=== PATIENT | female | born 1955 | race Caucasian/White ===

== ENCOUNTER 2016-05-09 08:54 | Emergency (ER) | payer BC ==
[2016-05-09 09:22] VITALS: BP 134/69
--- NOTE | 2016-05-09 10:12 | UC ---
Eye Complaint HPI - HPI Summary HPI Summary: 60 YO FEMALE WITH ONSET LAST PM OF SNEEZING AWOKE WITH RIGHT EYE SWOLLEN AND RED SCANT D/C NO PAIN OR PHOTOPHOBIA TOOK MITZI EYE FEELS IRRITATED - History of Current Complaint Chief Complaint: UCEye Stated Complaint: RIGHT EYE COMPLAINT Time Seen by Provider: 05/09/16 09:59 Hx Obtained From: Patient Hx Last Menstrual Period: 5yrs Onset/Duration: Gradual Onset, Lasting Hours Timing: Constant Severity Initially: Mild Severity Currently: Mild Pain Intensity: 1 Pain Scale Used: 0-10 Numeric Location of Injury: Other - NO INJURY Aggravating Factor(s): Nothing Alleviating Factor(s): Nothing Associated Signs And Symptoms: Positive: Swelling - Allergies/Home Medications Allergies/Adverse Reactions: Allergies Allergy/AdvReac Type Severity Reaction Status Date / Time environmental Allergy Sneezing Uncoded 05/09/16 09:23 Home Medications: Home Medications Multivitamins/Minerals TAB* [Thera M Plus TAB*] 1 tab PO DAILY 05/09/16 [ History Confirmed 05/09/16] Omeprazole CAP* [Prilosec CAP* 20 MG] 20 mg PO DAILY 05/09/16 [History Confirmed 05/09/16] PMH/Surg Hx/FS Hx/Imm Hx Previously Healthy: Yes - Surgical History Surgical History: Yes Surgery Procedure, Year, and Place: , left ankle with plate, tonsils - Family History Known Family History: Positive: Hypertension - Social History Alcohol Use: Occasionally Substance Use Type: None Smoking Status (MU): Never Smoked Tobacco Review of Systems Constitutional: Negative Skin: Negative Eyes: Eye Redness ENT: Negative Respiratory: Negative Cardiovascular: Negative Gastrointestinal: Negative Genitourinary: Negative Motor: Negative Neurovascular: Negative Musculoskeletal: Negative Neurological: Negative Psychological: Negative All Other Systems Reviewed And Are Negative: Yes Physical Exam Triage Information Reviewed: Yes Appearance: Well-Appearing, No Pain Distress, Well-Nourished Vital Signs: Initial Vital Signs Temp 98.5 F 05/09/16 09:13 Pulse 79 05/09/16 09:13 Resp 18 05/09/16 09:13 BP 134/69 05/09/16 09:13 Vital Signs Reviewed: Yes Eyes: Positive: Conjunctiva Inflamed - r>>l, Discharge - SCANT D/C BOTH EYES, Other: - EOMI/PERRL/LID EDEMA RIGHT EYE ENT: Positive: Hearing grossly normal, TMs normal. Negative: Pharyngeal erythema, Nasal congestion, Nasal drainage, Trismus, Muffled/hoarse voice Neck: Positive: Supple, Nontender, No Lymphadenopathy Respiratory: Positive: Lungs clear, Normal breath sounds, No respiratory distress, No accessory muscle use Cardiovascular: Positive: RRR, No Murmur Musculoskeletal: Positive: ROM Intact, No Edema Neurological: Positive: Alert Psychological Exam: Normal Skin Exam: Normal Eye Complaint Course/Dx - Differential Dx/Diagnosis Provider Diagnoses: CONJUNCTIVITIS. SUSPECT ALLERGIC CONJUNCTIVITIS Discharge - Discharge Plan Condition: Stable Disposition: HOME Prescriptions: Polymyx/Trimethoprim OPTH* [Polytrim OPHTH*] 1 - 2 drop BOTH EYES QID #1 btl Patient Education Materials: Conjunctivitis (ED) Referrals: Jody Mahonye MD [Primary Care Provider] - Additional Instructions: I SUSPECT AN ALLERGIC CONJUNCTIVITIS COOL COMPRESSES ZADITOR EYE DROPS (OTC) CONTINUE MITZI RECHECK TOMORROW IF NOT IMPROVING
== END 2016-05-09 10:15 | disposition home or self-care (01) ==
LOC: UCCORT 08:54
DX: H10.31 Unspecified acute conjunctivitis, right eye (principal)
CPT/HCPCS: 99202; G0463

== ENCOUNTER 2018-08-19 21:45 | Emergency (ER) | payer BC ==
--- NOTE | 2018-08-19 21:49 | UC ---
Skin Complaint HPI - HPI Summary HPI Summary: 63 yo female presents with puncture wound to right leg by a stick less than an hour ago. Last tetanus was in 2016. The area bled a lot and pt washed it out with tap water. She bandaged the area and came to - History of Current Complaint Time Seen by Provider: 08/19/18 21:46 Stated Complaint: PUNCTURE WOUND FROM A STICK Hx Obtained From: Patient Hx Last Menstrual Period: 5yrs Onset/Duration: Sudden Onset Onset Severity: Mild Current Severity: Mild Pain Intensity: 3 Pain Scale Used: 0-10 Numeric - Allergy/Home Medications Allergies/Adverse Reactions: Allergies Allergy/AdvReac Type Severity Reaction Status Date / Time environmental Allergy Sneezing Uncoded 08/19/18 21:52 Home Medications: Home Medications Gabapentin CAP(*) [Neurontin 100 mg CAP(*)] 100 mg PO TID PRN 08/19/18 [History Confirmed 08/19/18] Ranitidine HCl (Nf) [Zantac] 75 mg PO PRN 08/19/18 [History] PMH/Surg Hx/FS Hx/Imm Hx GI/ History: Gastroesophageal Reflux - Surgical History Surgical History: Yes Surgery Procedure, Year, and Place: , left ankle with plate, tonsils - Family History Known Family History: Positive: Hypertension - Social History Occupation: Employed Full-time Lives: With Family Alcohol Use: Occasionally Substance Use Type: None Smoking Status (MU): Never Smoked Tobacco Review of Systems All Other Systems Reviewed And Are Negative: Yes Constitutional: Positive: Negative Skin: Positive: Other - Puncture wound Respiratory: Positive: Negative Cardiovascular: Positive: Negative Neurovascular: Positive: Negative Neurological: Positive: Negative Psychological: Positive: Negative Physical Exam - Summary Physical Exam Summary: GENERAL: NAD. WDWN. No pain distress. SKIN: RIGHT HERNANDEZ: 5mm puncture wound to anterior aspect. Scant active bleeding. Clean wound without FB. CHEST: No accessory muscle use. Breathing comfortably and in no distress. CV: Pulses intact. Cap refill <2seconds NEURO: Alert. PSYCH: Age appropriate behavior. Triage Information Reviewed: Yes Vital Signs: Vital Signs: Temp Pulse Resp BP Pulse Ox 97.7 F 75 16 112/82 97 08/19/18 21:49 08/19/18 21:49 08/19/18 21:49 08/19/18 21:49 08/19/18 21:49 Vital Signs Reviewed: Yes Course/Dx - Course Course Of Treatment: Wound was irrigated with 100mL NS and bandaged with gauze and coban. Will place pt on keflex for prophylactic infection given stick puncture wound. Advised to monitor the area for any signs of infection and f/u if develops - Diagnoses Provider Diagnosis: Puncture wound of right leg excluding thigh Discharge - Sign-Out/Discharge Documenting (check all that apply): Patient Departure All imaging exams completed and their final reports reviewed: No Studies - Discharge Plan Condition: Stable Disposition: HOME Patient Education Materials: Puncture Wound (DC) Referrals: Joyd Mahoney MD [Primary Care Provider] - Additional Instructions: If you develop a fever, shortness of breath, chest pain, new or worsening symptoms - please call your PCP or go to the ED immediately. Change the dressing daily until well healed (likely 4-5 days). If you develop a fever, redness, swelling, drainage, or increased pain - please be rechecked immediately - Billing Disposition and Condition Condition: STABLE Disposition: Home
[2018-08-19 21:52] VITALS: BP 112/82
[2018-08-19] MEDS ORDERED: Silver Nitrate/Potassium Nitr* 1 EA STICK TOPICAL ONE (22:10)
== END 2018-08-19 22:23 | disposition home or self-care (01) ==
LOC: UCEAST 21:45
DX: S81.811A Laceration without foreign body, right lower leg, initial encounter (principal); W26.8XXA Contact with other sharp object(s), not elsewhere classified, initial encounter; Y92.9 Unspecified place or not applicable
CPT/HCPCS: 99212; A9270-GY; G0463

== ENCOUNTER 2018-09-07 18:58 | Emergency (ER) | payer BC ==
--- OUTSIDE RECORDS SUMMARY | 2018-09-07 19:04 | XMS REPORT | Continuity of Care Document ---
:1955 External Reference #:[id number] Author Name Jody Farah MD Address [address] [place] [address] Care Team Providers Name Role Phone Jody Farah MD Care Team Information [employer] Firefighter Unavailable Payers Date Identification Numbers Payment Provider Subscriber Policy Number: [id number] [facility] Nohemy Quevedo Group Number: [id number] [address] PayID: [id number] [place] [address] Problems Active Problems Provider Date Peptic reflux disease Onset: 06/27/2006 Family History Date Family Member(s) Observation Comments Father Hypertension Father Hiatal Hernia With Barretts Mother Osteoporosis Mother Cancer, Rectal Social History Type Date Description Comments Sex Unknown Marital Status Lives With Boyfriend Smoke-Free Home is smoke-free Pets 1 dog Pets 2 cats Occupation Teacher Tobacco Use Start: Unknown Never Smoked Cigarettes ETOH Use Occasionally consumes beer Tobacco Use Start: Unknown Patient has never smoked Smoking Status Reviewed: 08/12/18 Patient has never smoked Allergies, Adverse Reactions, Alerts Description No Known Drug Allergies Medications Active Medications SIG Qnty Indications Ordering Date Provider Shingrix 2 shot series 2units [facility], 08/12/2018 50mcg/0.5ML Jody Romero MD Suspension Rec Gabapentin take 1 po bid prn 90caps N95.1 [facility], 06/30/2018 100mg and 1-3 capsules at Jody Romero MD Capsules bedtime Diclofenac Sodium apply 1 gram per 100gm M77.12 [facility], 05/12/2018 1% joint four times a Jody Romero MD Gel day as needed for pain Meloxicam take 1/2 to 1 30tabs M77.12 [facility], 03/02/2018 15mg tablet by mouth Jody Romero MD Tablets once daily as needed Calcium 600 1 by mouth every 90tabs M85.9 [facility], 11/15/2016 600mg day Jody Romero MD Tablets Vitamin D3 2 by mouth every M85.9 [facility], 11/15/2016 400Unit day Jody Romero MD Tablets Ranitidine HCL 1 by mouth twice a 180tabs K21.0 [facility], 05/17/2016 150mg day prn Jody Romero MD Tablets Fexofenadine HCL 1 po qd prn 90tabs 471.9 [facility], 09/29/2012 Jody Romero MD 180mg Tablets Sulfamethoxazole/Tri take one tablet by 30tabs N39.0 [facility], 06/05/2010 methoprim DS mouth as directed Jody Romero MD after intercourse 800-160mg Tablets for uti prevention Qnasl R09.82 Unknown 80mcg/Act Aerosol History Medications Nitrofurantoin Monohyd one tab twice a 14caps N39.0 [place], 12/26/2017 - Macro day x 7 days Hawa Torres RN 05/12/2018 100mg Capsules [employer] Shingrix 2 shot series 2units [facility], 11/11/2017 - 50mcg Suspension Rec Jody Romero MD 08/12/2018 Nitrofurantoin Monohyd 1 by mouth 10caps N39.0 [facility], 10/13/2017 - Macro twice a day Jody Romero MD 10/18/2017 100mg Capsules Alkalol as dir R09.82 [facility], 07/29/2017 - Solution Jody Romero MD 11/11/2017 [facility] - 4mg TBPK Jody Romero MD 07/29/2017 Alprazolam 1/2-2 one times 20tabs F43.0 [facility], 05/20/2017 - 0.25mg Tablets a day as needed Jody Romero MD 08/12/2018 Omeprazole 1 [facility] mouth [facility] - 20mg Capsules DR every day thru Jody Romero MD 05/20/2017 the holidays instead of zantac x 4 wks per GI Ciprofloxacin HCL 1 by mouth 10tabs N39.0 [facility], 01/27/2017 - 500mg Tablets twice a day for Jody Romero MD 02/01/2017 5days Doxycycline Hyclate 2 by mouth x 1 2tabs [facility] 12/27/2016 - 100mg Jody Romero MD 05/20/2017 Tablets Lidocaine apply 1 on 12 30units M62.830 [facility], 11/15/2016 - 5% Patches hours off 12 Jody Romero MD 09/15/2017 hours Z00.01 Ciprofloxacin HCL 1 tab by mouth twice 6tabs [facility], 04/11/2016 - a day x 3 days Jody Romero MD 05/17/2016 250mg Tablets Omeprazole 1 by mouth every day K21.0 [facility] 01/04/2016 - 20mg Jody Romero MD 05/17/2016 Capsules Fluticasone 2 sprays in each 16gm R09.82 [facility] 05/19/2015 - Propionate nostril daily Jody Romero MD 11/11/2017 50mcg/Act Suspension Omeprazole 1 by mouth bid 30caps K21.0 [facility] 04/18/2015 - 40mg Jody Romero MD 01/04/2016 Capsules Aspirin 1 by mouth every day R07.2 [facility], 12/02/2014 - 325mg Tablets Jody Romero MD 11/17/2015 Alprazolam 1/2-2 by mouth three 12tabs F43.0 [facility], 12/02/2014 - 0.25mg times a day as Jody Romero MD 04/11/2016 Tablets needed anxiety/insomnia Ciprofloxacin HCL 1 by mouth twice a 6tabs 595.0 [facility] 11/15/2014 - day Jody Romero MD 12/02/2014 250mg Tablets Caltrate 600+D 1 by mouth every day M85.9 [facility], 05/13/2014 - Jody Romero MD 11/15/2016 [id number] Tablets Cipro 1 by mouth twice a 6tabs 599.0 [facility] 12/02/2013 - 250mg Tablets day x 3 days Hawa Torres RN 03/25/2014 [employer] Premarin .5gm vaginally twice 1units 627.3 [facility] 12/02/2013 - 0.625mg/GM weekly for atrophic Hawa Torres RN 11/15/2014 Cream vaginitis sx [employer] Zostavax SC x 1 1units [facility], 08/31/2013 - Jody Romero MD 05/19/2015 04291Mya/0.65ML Solution Rec Macrobid 1 tab po bid x 7 14caps [facility], 07/19/2013 - 100mg days Hawa Torres RN 03/25/2014 Capsules [employer] Ciprofloxacin HCL 1 po bid till gone 6tabs [facility], 07/14/2013 - Hawa Torres RN 07/19/2013 250mg Tablets [employer] Ranitidine HCL 1 by mouth every day 90tabs K21.0 [facility], 06/25/2013 - 150mg Jody Romero MD 04/18/2015 Tablets Omeprazole 1 po qd 30caps 530.11 [facility], 09/29/2012 - 40mg Jody Romero MD 06/25/[address] Lee 471.9 [facility], 09/29/2012 - 137-50mcg/Act Jody Romero MD 05/19/2015 Suspension Famotidine 1 po qd 30tabs 787.20 [facility], 10/04/2011 - 40mg Jody Romero MD 06/01/2012 Tablets Fluticasone 2 sprays in each 16gm 784.91 [facility], 03/29/2011 - Propionate nostril daily Jody Romero MD 06/01/2012 50mcg/Act Suspension Ciprofloxacin HCL 1 po bid 6tabs 595.0 [facility], 06/05/2010 - Jody Romero MD 09/04/2010 250mg Tablets Nasonex 2 p bilat qd 1Bottle 381.81 [facility], 03/30/2010 - 50mcg/Act Jody Romero MD 03/29/2011 Suspension Ciprofloxacin HCL 1 po bid till gone 6tabs 599.0 [facility], 08/30/2009 - Hawa Torres RN 09/29/2009 250mg Tablets [employer] Sulfamethoxazole-Tri One as Directed 12units 599.0 [facility], 08/30/2009 - methoprim After [place] Jody Romero MD 06/05/2010 For UTI Prevention 800-160mg/20ML Suspension Carisoprodol take 1/2 to 1 tablet 20tabs 728.85 [facility], 07/04/2009 - 350mg three times a day if Jody Romero MD 10/28/2011 Tablets needed Lidoderm apply as directed [facility] 728.85 [facility] - 5% Patches 1-3 patches on x 12 Jody Romero MD 01/30/2010 hrs Cipro 1 po bid x 3 d 6tabs [facility], 06/20/2009 - 250mg Tablets Jody Romero MD 07/04/2009 Cipro 1 po bid x 3 days 6tabs 599.0 [place], 06/01/2008 - 250mg Tablets Hawa Torres RN 06/11/2008 [employer] Cipro 1 PO bid X 3D 6tabs [facility], 11/05/2006 - 250mg Tablets Jody Romero MD 11/21/2006 Diflucan One Tab PO Times One 1tabs [facility], 06/30/2006 - 150mg Day Jody Romero MD 12/15/2007 Tablets Kenalog In Orabase to aff area bid X 2 1Tube 528.2 [facility], 05/23/2006 - WKS Jody Romero MD 12/15/2007 0.1% Paste Endocarditis DX: Valvular [facility], 12/05/2005 - Prophylaxis Insufficiency Jody Romero MD 12/15/2007 Amoxicillin 4 po 1 hr before 4caps [facility], 12/03/2005 - 500mg procedure Jody Romero MD 12/15/2007 Capsules Protonix 1 PO qd 90tabs [facility], 08/30/2005 - 40mg Tablets Jody Romero MD 11/21/2006 Air Cast r ankle 845.09 [facility], 06/28/2005 - Jody Romero MD 08/02/2005 dx: sprain Soma 1/2-1 po tid prn 30tabs [facility], 04/01/2005 - 350mg Tablets Jody Romero MD 05/03/2005 Mobic 1-2 po qd 180tabs 726.5 [facility], 03/29/2005 - 7.5mg Tablets Jody Romero MD 05/03/2005 Physical Therapy eval and treat r hip 726.5 [facility], 03/29/2005 - and lbp Jdoy Romero MD 03/30/2005 Cipro 1 po bid x 7D 14tabs 595.0 [facility], 03/11/2005 - 250mg Tablets Jody Romero MD 05/03/2005 Cipro XR 1 po qd 3tabs 595.0 [facility], 01/18/2005 - 500mg Jody Romero MD 03/11/2005 Tablets Cipro XR 1 qd x 3 days 3tabs [facility], 04/26/2004 - 500mg Hawa Torres RN 03/11/2005 Tablets [employer] Medications Administered in Office Medication SIG Qnty Indications Ordering Provider Date Depo Medrol 40 MG Jody Farah MD 03/02/2018 Injection Depo Medrol 40 MG Jody Farah MD 12/11/2000 Injection Immunizations CPT Code Status Date Vaccine Lot # [id number] Given 12/23/2017 Influenza Vac, Quadrivalent, Split, 0.5mL Dosage, Im Use 64188 Given 12/11/2016 Influenza Vac, Quadrivalent, Split, 0.5mL Dosage, [id number] Im Use 90412 Given 02/13/2016 Influenza Vac, Quadrivalent, Split, 0.5mL Dosage, Im Use 16346 Given 06/13/2015 Tdap (Adacel) Ages 7 And Above Only [id number] 31054 Given 01/22/2015 Zoster (Zostavax) 39166 Given 12/23/2014 Influenza Vac, Quadrivalent, Split, 0.5mL Dosage, [id number] Im Use Q2038 Given 03/25/2014 Fluzone Trivalent Immunization [id number] Q2038 Given 02/23/2013 Fluzone Trivalent Immunization Q2038 Given 02/23/2013 Fluzone Trivalent Immunization [id number] Q2038 Given 01/17/2012 Fluzone Trivalent Immunization [id number] 99945 Given 01/30/2010 Afluria Or Fluvirin Flu Vac Intramuscular [id number] 76918 Given 03/31/2009 Influenza Virus Vaccine Pandemic Formulation - [id number] 87814 Given 03/31/2009 Afluria Or Fluvirin Flu Vac Intramuscular [id number] 03151 Given 03/31/2009 Administration Swine Flu Vaccine [id number] 36665 Given 01/21/2008 Afluria Or Fluvirin Flu Vac Intramuscular [id number] 80977 Given 07/10/2007 Tdap (Adacel) Ages 7 And Above Only [id number] 71593 Given 02/17/2007 Afluria Or Fluvirin Flu Vac Intramuscular 08755 Given 02/17/2007 Afluria Or Fluvirin Flu Vac Intramuscular [id number] 10684 Given 03/07/2006 Afluria Or Fluvirin Flu Vac Intramuscular [id number] 78644 Given 07/10/1999 Immunization Td 7 Yrs Or Older Vital Signs Date Vital Result Comment 08/12/2018 8:04am Weight 160.00 lb Heart Rate 76 /min BP Systolic 120 mmHg BP Diastolic 76 mmHg Height 69 inches 5'9" BMI (Body Mass Index) 23.6 kg/m2 06/30/2018 2:14pm Weight 161.00 lb Heart Rate 76 /min BP Systolic 110 mmHg BP Diastolic 64 mmHg Height 69 inches 5'9" BMI (Body Mass Index) 23.8 kg/m2 05/12/2018 8:41am Weight 161.00 lb Heart Rate 64 /min BP Systolic 110 mmHg BP Diastolic 74 mmHg Height 69 inches 5'9" BMI (Body Mass Index) 23.8 kg/m2 04/21/2018 3:45pm Weight 163.00 lb Heart Rate 68 /min BP Systolic 120 mmHg BP Diastolic 68 mmHg Height 69 inches 5'9" BMI (Body Mass Index) 24.1 kg/m2 03/02/2018 11:59am Weight 165.00 lb Heart Rate 80 /min BP Systolic 126 mmHg BP Diastolic 66 mmHg Height 69 inches 5'9" BMI (Body Mass Index) 24.4 kg/m2 12/26/2017 11:52am Body Temperature 98.1 F Weight 165.25 lb Heart Rate 60 /min BP Systolic 102 mmHg BP Diastolic 74 mmHg Height 69 inches 5'9" BMI (Body Mass Index) 24.4 kg/m2 11/11/2017 8:35am Weight 162.00 lb Heart Rate 76 /min BP Systolic 118 mmHg BP Diastolic 78 mmHg Height 69 inches 5'9" BMI (Body Mass Index) 23.9 kg/m2 10/13/2017 10:43am Body Temperature 98.0 F Weight 163.00 lb Heart Rate 71 /min BP Systolic Sitting 112 mmHg BP Diastolic Sitting 73 mmHg Height 69 inches 5'9" BMI (Body Mass Index) 24.1 kg/m2 09/15/2017 2:46pm Weight 167.00 lb Heart Rate 64 /min BP Systolic 120 mmHg BP Diastolic 76 mmHg Height 69 inches 5'9" BMI (Body Mass Index) 24.7 kg/m2 07/29/2017 2:45pm Body Temperature 99.1 F Weight 166.00 lb Heart Rate 76 /min BP Systolic 120 mmHg BP Diastolic 80 mmHg Height 69 inches 5'9" BMI (Body Mass Index) 24.5 kg/m2 05/20/2017 8:26am Weight 163.00 lb Heart Rate 72 /min BP Systolic 112 mmHg BP Diastolic 74 mmHg Height 69 inches 5'9" BMI (Body Mass Index) 24.1 kg/m2 01/27/2017 8:18am Heart Rate 75 /min BP Systolic 114 mmHg BP Diastolic 67 mmHg Height 69 inches 5'9" Urine Dipstick - Blood NEGATIVE Urine Dipstick - Protein NEGATIVE Urine Dipstick - Glucose NEGATIVE Urine Dipstick - Leukocytes 1+ 12/11/2016 8:05am Weight 162.00 lb Heart Rate 76 /min BP Systolic 120 mmHg BP Diastolic 68 mmHg Height 69 inches 5'9" BMI (Body Mass Index) 23.9 kg/m2 11/15/2016 8:02am Weight 160.00 lb Heart Rate 76 /min BP Systolic 112 mmHg BP Diastolic 72 mmHg Height 69 inches 5'9" BMI (Body Mass Index) 23.6 kg/m2 10/04/2016 11:28am Weight 161.00 lb Heart Rate 68 /min BP Systolic 128 mmHg BP Diastolic 68 mmHg Height 69 inches 5'9" BMI (Body Mass Index) 23.8 kg/m2 05/17/2016 9:00am Weight 164.00 lb Heart Rate 76 /min BP Systolic 120 mmHg BP Diastolic 76 mmHg Height 69 inches 5'9" BMI (Body Mass Index) 24.2 kg/m2 04/11/2016 8:51am Body Temperature 98.3 F Weight 166.00 lb Heart Rate 76 /min BP Systolic 118 mmHg BP Diastolic 68 mmHg Height 69 inches 5'9" BMI (Body Mass Index) 24.5 kg/m2 02/13/2016 8:31am Weight 164.00 lb Heart Rate 76 /min BP Systolic 128 mmHg BP Diastolic 68 mmHg 11/17/2015 8:30am Weight 162.00 lb Heart Rate 76 /min BP Systolic 130 mmHg BP Diastolic 76 mmHg Height 69 inches 5'9" BMI (Body Mass Index) 23.9 kg/m2 06/13/2015 2:08pm Weight 168.50 lb Heart Rate 73 /min BP Systolic 121 mmHg BP Diastolic 55 mmHg Height 69 inches 5'9" BMI (Body Mass Index) 24.9 kg/m2 05/19/2015 8:52am Weight 169.00 lb Heart Rate 80 /min BP Systolic 124 mmHg BP Diastolic 78 mmHg Height 69 inches 5'9" BMI (Body Mass Index) 25.0 kg/m2 12/23/2014 11:08am Weight 166.00 lb Heart Rate 68 /min BP Systolic 120 mmHg BP Diastolic 74 mmHg Height 69 inches 5'9" BMI (Body Mass Index) 24.5 kg/m2 12/02/2014 10:16am Weight 164.12 lb Heart Rate 68 /min BP Systolic 114 mmHg BP Diastolic 65 mmHg Height 69 inches 5'9" BMI (Body Mass Index) 24.2 kg/m2 11/15/2014 8:08am Weight 163.00 lb Heart Rate 80 /min BP Systolic 118 mmHg BP Diastolic 76 mmHg Height 69 inches 5'9" BMI (Body Mass Index) 24.1 kg/m2 05/13/2014 10:44am Weight 175.00 lb Heart Rate 76 /min BP Systolic 112 mmHg BP Diastolic 78 mmHg Height 69 inches 5'9" BMI (Body Mass Index) 25.8 kg/m2 03/25/2014 9:42am Weight 176.00 lb Heart Rate 76 /min BP Systolic 106 mmHg BP Diastolic 68 mmHg Height 69 inches 5'9" BMI (Body Mass Index) 26.0 kg/m2 12/02/2013 8:20am Weight 171.00 lb Heart Rate 70 /min BP Systolic 121 mmHg BP Diastolic 85 mmHg Height 69 inches 5'9" BMI (Body Mass Index) 25.2 kg/m2 09/29/2013 9:40am Weight 170.00 lb Heart Rate 72 /min BP Systolic 120 mmHg BP Diastolic 68 mmHg Height 69 inches 5'9" BMI (Body Mass Index) 25.1 kg/m2 08/31/2013 1:11pm Weight 171.00 lb Heart Rate 68 /min BP Systolic 120 mmHg BP Diastolic 72 mmHg Height 69 inches 5'9" BMI (Body Mass Index) 25.2 kg/m2 07/15/2013 3:22pm Weight 174.00 lb Heart Rate 64 /min BP Systolic 108 mmHg BP Diastolic 63 mmHg 07/14/2013 8:36am Body Temperature 98.0 F Weight 178.00 lb Heart Rate 76 /min BP Systolic 134 mmHg BP Diastolic 85 mmHg Urine Dipstick - Blood 1+ Urine Dipstick - Protein NEGATIVE Urine Dipstick - Glucose NEGATIVE 06/25/2013 8:28am Weight 170.00 lb Heart Rate 76 /min BP Systolic 112 mmHg BP Diastolic 76 mmHg Height 69 inches 5'9" BMI (Body Mass Index) 25.1 kg/m2 02/23/2013 2:59pm Weight 175.00 lb Heart Rate 72 /min BP Systolic 120 mmHg BP Diastolic 76 mmHg Height 69 inches 5'9" BMI (Body Mass Index) 25.8 kg/m2 09/29/2012 2:26pm Weight 173.00 lb Heart Rate 76 /min BP Systolic 110 mmHg BP Diastolic 66 mmHg Height 69 inches 5'9" BMI (Body Mass Index) 25.5 kg/m2 06/01/2012 11:03am Weight 170.00 lb Heart Rate 64 /min BP Systolic 120 mmHg BP Diastolic 70 mmHg Height 69 inches 5'9" BMI (Body Mass Index) 25.1 kg/m2 10/28/2011 10:09am Weight 171.00 lb Heart Rate 76 /min BP Systolic 126 mmHg BP Diastolic 72 mmHg Height 69 inches 5'9" BMI (Body Mass Index) 25.2 kg/m2 10/04/2011 12:09pm Weight 170.00 lb Heart Rate 76 /min BP Systolic 124 mmHg BP Diastolic 78 mmHg Height 69 inches 5'9" BMI (Body Mass Index) 25.1 kg/m2 08/23/2011 10:46am Weight 172.00 lb Heart Rate 76 /min BP Systolic 106 mmHg BP Diastolic 66 mmHg Height 69 inches 5'9" BMI (Body Mass Index) 25.4 kg/m2 03/29/2011 4:22pm Body Temperature 98.9 F Weight 169.00 lb Heart Rate 60 /min BP Systolic 112 mmHg BP Diastolic 72 mmHg Height 69 inches 5'9" BMI (Body Mass Index) 25.0 kg/m2 10/30/2010 2:59pm Weight 164.00 lb Heart Rate 77 /min BP Systolic 108 mmHg BP Diastolic 69 mmHg 09/04/2010 8:53am Body Temperature 979.0 F Weight 161.00 lb Heart Rate 72 /min BP Systolic 114 mmHg BP Diastolic 66 mmHg Height 69 inches 5'9" BMI (Body Mass Index) 23.8 kg/m2 06/05/2010 4:05pm Body Temperature 98.5 F Heart Rate 64 /min BP Systolic 120 mmHg BP Diastolic 70 mmHg 03/30/2010 1:05pm Body Temperature 98.7 F Weight 167.00 lb Heart Rate 68 /min BP Systolic 108 mmHg BP Diastolic 72 mmHg 01/30/2010 2:17pm Weight 166.00 lb Heart Rate 72 /min BP Systolic 108 mmHg BP Diastolic 70 mmHg 11/24/2009 10:31am Weight 162.00 lb Heart Rate 64 /min BP Systolic 110 mmHg BP Diastolic 70 mmHg Height 69 inches 5'9" BMI (Body Mass Index) 23.9 kg/m2 Urine Dipstick - Blood NEGATIVE Urine Dipstick - Protein NEGATIVE Urine Dipstick - Glucose NEGATIVE 09/29/2009 8:35am Weight 164.00 lb Heart Rate 68 /min BP Systolic 110 mmHg BP Diastolic 62 mmHg Urine Dipstick - Blood 2+ Urine Dipstick - Protein NEGATIVE Urine Dipstick - Glucose NEGATIVE 08/30/2009 10:35am Weight 165.00 lb Heart Rate 80 /min BP Systolic 112 mmHg BP Diastolic 70 mmHg Urine Dipstick - Blood 1+ And WBC 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 [employer] Urine Dipstick - Protein TRACE Urine Dipstick - Glucose NEGATIVE 07/04/2009 10:28am Weight 166.00 lb Heart Rate 76 /min BP Systolic 100 mmHg BP Diastolic 70 mmHg 06/20/2009 10:38am Body Temperature 96.9 F Heart Rate 76 /min BP Systolic 112 mmHg BP Diastolic 64 mmHg Urine Dipstick - Blood 1+ Urine Dipstick - Protein 1+ Urine Dipstick - Glucose 1+ 03/31/2009 10:38am Weight 163.00 lb Heart Rate 76 /min BP Systolic 102 mmHg BP Diastolic 68 mmHg 09/05/2008 2:43pm Weight 164.00 lb Heart Rate 68 /min BP Systolic 110 mmHg BP Diastolic 76 mmHg Height 68.75 inches 5'8.75" BMI (Body Mass Index) 24.4 kg/m2 Urine Dipstick - Blood NEGATIVE Urine Dipstick - Protein NEGATIVE Urine Dipstick - Glucose NEGATIVE 06/01/2008 8:16am Weight 164.00 lb Heart Rate 84 /min BP Systolic 119 mmHg BP Diastolic 70 mmHg Urine Dipstick - Blood 1+ WBC Urine Dipstick - Protein TRACE Urine Dipstick - Glucose 1+ 01/21/2008 8:22am Weight 164.00 lb Heart Rate 80 /min BP Systolic 112 mmHg BP Diastolic 70 mmHg Height 69 inches 5'9" BMI (Body Mass Index) 24.2 kg/m2 12/18/2007 10:22am Weight 165.00 lb Heart Rate 65 /min BP Systolic 108 mmHg BP Diastolic 68 mmHg Height 69 inches 5'9" BMI (Body Mass Index) 24.4 kg/m2 12/15/2007 1:55pm Weight 163.00 lb Heart Rate 84 /min BP Systolic 116 mmHg BP Diastolic 55 mmHg Height 69 inches 5'9" BMI (Body Mass Index) 24.1 kg/m2 08/14/2007 11:01am Weight 160.00 lb Heart Rate 64 /min BP Systolic 122 mmHg BP Diastolic 72 mmHg Height 69 inches 5'9" BMI (Body Mass Index) 23.6 kg/m2 Urine Dipstick - Blood TRACE Urine Dipstick - Protein NEGATIVE Urine Dipstick - Glucose NEGATIVE 07/10/2007 10:11am Weight 161.00 lb Heart Rate 687 /min BP Systolic 118 mmHg BP Diastolic 66 mmHg Height 69 inches 5'9" BMI (Body Mass Index) 23.8 kg/m2 11/21/2006 10:36am Weight 161.00 lb Heart Rate 76 /min BP Systolic 112 mmHg BP Diastolic 78 mmHg Height 69 inches 5'9" BMI (Body Mass Index) 23.8 kg/m2 06/27/2006 8:42am Weight 161.00 lb Heart Rate 76 /min BP Systolic 108 mmHg BP Diastolic 66 mmHg Height 69 inches 5'9" BMI (Body Mass Index) 23.8 kg/m2 Urine Dipstick - Blood NEGATIVE Urine Dipstick - Protein NEGATIVE Urine Dipstick - Glucose NEGATIVE 05/23/2006 1:39pm Body Temperature 97.1 F Weight 161.00 lb Heart Rate 76 /min BP Systolic 108 mmHg BP Diastolic 66 mmHg 03/07/2006 1:42pm Weight 163.00 lb Heart Rate 80 /min BP Systolic 116 mmHg BP Diastolic 76 mmHg 08/02/2005 4:26pm Weight 158.00 lb Heart Rate 60 /min BP Systolic 120 mmHg BP Diastolic 74 mmHg 06/28/2005 3:56pm Weight 162.00 lb Heart Rate 76 /min BP Systolic 104 mmHg BP Diastolic 70 mmHg 05/03/2005 2:50pm Weight 159.00 lb Heart Rate 58 /min BP Systolic 108 mmHg BP Diastolic 66 mmHg 03/29/2005 1:32pm Body Temperature 97.7 F Weight 163.00 lb Heart Rate 74 /min BP Systolic 128 mmHg BP Diastolic 85 mmHg Urine Dipstick - Blood NEGATIVE Urine Dipstick - Protein NEGATIVE Urine Dipstick - Glucose NEGATIVE 03/11/2005 2:20pm Body Temperature 97.9 F Weight 159.00 lb Heart Rate 77 /min BP Systolic 125 mmHg BP Diastolic 61 mmHg Urine Dipstick - Blood 1+ Leukocytes Urine Dipstick - Protein TRACE Urine Dipstick - Glucose NEGATIVE 01/18/2005 8:18am Weight 157.00 lb Heart Rate 83 /min BP Systolic 100 mmHg BP Diastolic 52 mmHg Urine Dipstick - Blood 1+ Urine Dipstick - Protein 1+ Urine Dipstick - Glucose NEGATIVE 09/03/2004 1:53pm Weight 159.00 lb Heart Rate 72 /min BP Systolic 111 mmHg BP Diastolic 62 mmHg Urine Dipstick - Blood 3+ Urine Dipstick - Protein NEGATIVE Urine Dipstick - Glucose NEGATIVE Results Test Date Facility Test Result H/L Range Note Sanjana Screen With 06/30/2018 [facility] Sanjana Screen NEGATIVE Negative 1 Reflex-[facility] dsDNA IgG 1.10 IU/mL 0.00-9.00 2 Laboratory test finding 06/30/2018 [facility] CCP Antibody Igg Negative Negative CRP (C-Reactive) 0.03 mg/dL 0.00-0.75 Esr 2 mm/hr 0-20 Rheumatoid Factor-[facility] <10.0 IU/mL 0.0-10.0 Lyme Igm/Igg AB -RL 06/30/2018 [facility] Lyme Igm/Igg AB @ NEGATIVE (Neg) 3, 4 CBC with Auto 05/12/2018 [facility] WBC 4.6 K/uL 4.1-11.0 Diff-fcmg RBC 4.45 M/uL 4.00-5.40 Hemoglobin 14.8 gm/dL 12.0-16.0 Hematocrit 43.0 % 36.0-47.0 MCV 96.5 fL 80.0-97.0 MCH 33.2 pg High 27.0-32.0 MCHC 34.4 g/dL 32.0-36.0 RDW 12.7 % 11.5-14.5 PLT Count 157 K/ul 140-400 MPV 8.3 FL 7.1-10.7 Neutrophil 66.5 % 35.0-75.0 Lymphocyte 22.2 % 16.0-52.0 Monocyte 7.0 % 2.0-10.0 Eosinophil 3.1 % 0.0-5.0 Basophil 1.2 % 0.0-4.0 Abs Neutrophils 3.1 K/uL 2.1-8.0 Abs Lymphocytes 1.0 K/uL 0.8-5.5 Abs Monocytes 0.3 K/uL 0.1-1.0 Abs Eosinophils 0.1 K/uL 0.0-0.5 Abs Basophils 0.1 K/uL 0.0-0.3 Laboratory test finding 05/12/2018 [facility] Vitamin B12 621 pg/mL 180- 914 Iron Panel 05/12/2018 [facility] Iron, Total 147 g/dL 50-170 Transferrin 302.0 mg/dL 203.0-362.0 Tibc (calc) 423 g/dL 261-478 % Iron Saturation 34.8 % 13.0-45.0 Laboratory test finding 05/12/2018 [facility] Ferritin 12.1 ng/ml 11.0- 306.8 Lipid Treatment 05/12/2018 [facility] Cholesterol 232 mg/dL High 50-199 Triglycerides 95 mg/dL 30-200 HDL 91 mg/dL High 35-85 5 Chol/ HDL Ratio 2.5 ratio Low 3.7-5.6 VLDL 19 mg/dL 2-29 LDL (Calc) 122 mg/dL High 20-99 6 Alt 13 U/L 3-42 Ast 17 U/L 8-42 Laboratory test finding 05/12/2018 [facility] Vitamin D 25 Hydroxy 35 ng/mL 30-100 7 Basic (BMP) 05/12/2018 [facility] Sodium 143 mmol/L 135-146 8 Potassium 4.0 mmol/L 3.5-5.2 Chloride# 103 mmol/L 97-110 9 Carbon Dioxide 31 mmol/L 24-34 Glucose 84 mg/dL 70-105 BUN 13 mg/dL 6-26 Creatinine 0.7 mg/dL 0.5-1.4 Calcium 10.0 mg/dL 8.5-10.2 Non Marizol Egfr >60 >60 10 Marizol Egfr >60 >60 11 Anion Gap 9 mmol/L 5-15 12 Laboratory 05/12/2018 [facility] TSH 2.58 uIU/mL 0.35-4.94 test finding Laboratory 05/12/2018 [facility] Pap SEE NOTE 13 test finding Laboratory 12/26/2017 [facility] Urine Microbiology res Abnormal 14, test finding Culture <SEE NOTE> 15 CBC With Auto 11/11/2017 [facility] WBC 3.8 K/uL Low 4.1-11.0 Diff RBC 4.25 M/uL 4.00-5.40 Hemoglobin 13.7 gm/dL 12.0-16.0 Hematocrit 40.8 % 36.0-47.0 MCV 96.1 fL 80.0-97.0 MCH 32.3 pg High 27.0-32.0 MCHC 33.7 g/dL 32.0-36.0 RDW 13.1 % 11.5-14.5 PLT Count 156 K/ul 140-400 MPV 8.2 FL 7.1-10.7 Neutrophil 65.7 % 35.0-75.0 Lymphocyte 23.1 % 16.0-52.0 Monocyte 6.7 % 2.0-10.0 Eosinophil 3.5 % 0.0-5.0 Basophil 1.0 % 0.0-4.0 Abs Neutrophils 2.5 K/uL 2.1-8.0 Abs Lymphocytes 0.9 K/uL 0.8-5.5 Abs Monocytes 0.2 K/uL 0.1-1.0 Abs Eosinophils 0.1 K/uL 0.0-0.5 Abs Basophils 0.0 K/uL 0.0-0.3 Comprehensive Met Panel-[facility] 11/11/2017 [facility] Sodium 145 mmol/L 135- 146 16 Potassium 4.0 mmol/L 3.5-5.2 Chloride# 105 mmol/L 97-110 17 Carbon Dioxide 31 mmol/L 24-34 Glucose 86 mg/dL 70-105 BUN 14 mg/dL 6-26 Creatinine 0.9 mg/dL 0.5-1.4 Calcium 9.7 mg/dL 8.5-10.2 Total Protein 6.6 g/dL 6.0-8.0 Albumin 4.5 g/dL 3.6-4.9 Globulin 2.1 g/dL 2.0-3.5 A/G Ratio 2.1 Ratio 1.0-2.2 Total Bilirubin 1.1 mg/dL 0.1-1.3 Alkaline Phosphatase 49 U/L 24-140 Alt 14 U/L 3-42 Ast 18 U/L 8-42 Marizol Egfr >60 >60 18 Non Marizol Egfr >60 >60 19 Anion Gap 9 mmol/L 5-15 20 Laboratory test finding 11/11/2017 [facility] Ferritin 7.8 ng/ml Low 11.0- 306.8 Lipid 11/11/2017 [facility] Cholesterol 221 mg/dL High 50-199 Triglycerides 73 mg/dL 30-200 HDL 88 mg/dL High 35-85 21 Chol/ HDL Ratio 2.5 ratio Low 3.7-5.6 VLDL 15 mg/dL 2-29 LDL (Calc) 118 mg/dL High 20-99 22 Laboratory test finding 11/11/2017 [facility] Vitamin D 25 Hydroxy 34 ng/mL 30-100 23 TSH 1.92 uIU/mL 0.35-4.94 Free T4 1.03 ng/dL 0.70-1.48 Laboratory test 11/11/2017 [facility] T3 Total 0.8 ng/mL (0.6-1.8) 24 finding Laboratory test 10/13/2017 [facility] Urine Microbiology Abnormal 25, finding Culture res <SEE NOTE> 26 Laboratory test 01/27/2017 [facility] Urine Microbiology Abnormal 27, finding Culture res <SEE NOTE> 28 Laboratory test 11/15/2016 [facility] Vit D25oh 35 ng/mL 31-100 finding Comprehensive Met 11/15/2016 [facility] Sodium 142 mmol/L 135-146 29 [facility] Potassium 4.1 mmol/L 3.5-5.2 Chloride# 104 mmol/L 97-110 30 Carbon Dioxide 29 mmol/L 24-34 Glucose 81 mg/dL 70-105 BUN 15 mg/dL 6-26 Creatinine 0.8 mg/dL 0.5-1.4 Calcium 9.6 mg/dL 8.5-10.2 Total Protein 6.2 g/dL 6.0-8.0 Albumin 4.5 g/dL 3.6-4.9 Globulin 1.7 g/dL Low 2.0-3.5 A/G Ratio 2.6 Ratio High 1.0-2.2 Total Bilirubin 1.2 mg/dL 0.1-1.3 Alkaline Phosphatase 52 U/L 24-140 Alt 19 U/L 3-42 Ast 21 U/L 8-42 Marizol Egfr >60 >60 31 Non Marizol Egfr >60 >60 32 Anion Gap 9 mmol/L 7-16 33 Laboratory test finding 11/15/2016 [facility] TSH 2.26 uIU/mL 0.35-4.94 Free T4 0.90 ng/dL 0.70-1.48 T3 Total 0.8 ng/mL (0.7-1.9) 34 Lipid 11/15/2016 [facility] Cholesterol 207 mg/dL High 50-199 Triglycerides 69 mg/dL 30-200 HDL 89 mg/dL High 35-85 35 Chol/ HDL Ratio 2.3 ratio Low 3.7-5.6 VLDL 14 mg/dL 2-29 LDL (Calc) 104 mg/dL High 20-99 36 Laboratory test 04/11/2016 [facility] Urine Culture Microbiology res Abnormal 37 finding <SEE NOTE> CBC With Auto 02/13/2016 [facility] WBC 4.6 K/uL 4.1-11 Diff .0 RBC 4.62 M/uL 4.00-5.40 Hemoglobin 14.4 gm/dL 12.0-16.0 Hematocrit 43.0 % 36.0-47.0 MCV 93.0 fL 80.0-97.0 MCH 31.2 pg 27.0-32.0 MCHC 33.6 g/dL 32.0-36.0 RDW 14.5 % 11.5-14.5 PLT Count 163 K/ul 140-400 Neutrophil 65.1 % 35.0-75.0 Lymphocyte 23.3 % 16.0-52.0 Monocyte 6.7 % 2.0-10.0 Eosinophil 3.8 % 0.0-5.0 Basophil 1.1 % 0.0-4.0 Abs Neutrophils 3.0 K/uL 2.1-8.0 Abs Lymphocytes 1.1 K/uL 0.8-5.5 Abs Monocytes 0.3 K/uL 0.1-1.0 Abs Eosinophils 0.2 K/uL 0.0-0.5 Abs Basophils 0.1 K/uL 0.0-0.3 Laboratory test finding 02/13/2016 [facility] Ferritin 10.8 ng/ml Low 11.0- 306.0 Iron Panel 02/13/2016 [facility] Iron, Total 125 g/dL 50-170 Transferrin 302.1 mg/dL 203.0-362.0 Tibc (calc) 423 g/dL 261-478 % Iron Saturation 29.6 % 13.0-45.0 Laboratory test finding 02/13/2016 [facility] Amylase 73 U/L 29-103 Lipase 88 Consistent wi <SEE NOTE> U/L High 38 CBC With Auto Diff 11/17/2015 [facility] WBC 4.0 K/uL Low 4.1-11.0 RBC 4.41 M/uL 4.00-5.40 Hemoglobin 13.5 gm/dL 12.0-16.0 Hematocrit 40.4 % 36.0-47.0 MCV 91.5 fL 80.0-97.0 MCH 30.5 pg 27.0-32.0 MCHC 33.3 g/dL 32.0-36.0 RDW 13.8 % 11.5-14.5 PLT Count 163 K/ul 140-400 Neutrophil 70.8 % 35.0-75.0 Lymphocyte 19.3 % 16.0-52.0 Monocyte 6.4 % 2.0-10.0 Eosinophil 2.5 % 0.0-5.0 Basophil 1.0 % 0.0-4.0 Abs Neutrophils 2.8 K/uL 2.1-8.0 Abs Lymphocytes 0.8 K/uL 0.8-5.5 Abs Monocytes 0.3 K/uL 0.1-1.0 Abs Eosinophils 0.1 K/uL 0.0-0.5 Abs Basophils 0.0 K/uL 0.0-0.3 Laboratory test finding 11/17/2015 [facility] Ferritin 7.4 ng/ml Low 11.0- 306.0 Iron Panel 11/17/2015 [facility] Iron, Total 66 g/dL 50-170 Transferrin 329.4 mg/dL 203.0-362.0 Tibc (calc) 461 g/dL 261-478 % Iron Saturation 14.3 % 13.0-45.0 Laboratory test finding 11/17/2015 [facility] Folate >24.8 ng/ml 5.9-24.8 TSH 1.90 uIU/mL 0.35-4.94 Vitamin B12 620 pg/mL 180-914 Amylase 76 U/L 29-103 Lipase 88 U/L High 11-82 Lipid 11/17/2015 [facility] Cholesterol 216 mg/dL High 50-199 Triglycerides 75 mg/dL 30-200 HDL 86 mg/dL High 35-85 39 Chol/ HDL Ratio 2.5 ratio Low 3.7-5.6 VLDL 15 mg/dL 2-29 LDL (Calc) 115 mg/dL High 20-99 40 Comprehensive Metabolic (CMP) 11/17/2015 [facility] Sodium 140 mmol/L 134- 142 Potassium 4.1 mmol/L 3.5-5.2 Chloride 103 mmol/L 97-109 Carbon Dioxide 32 mmol/L 24-34 Glucose 89 mg/dL 70-105 BUN 12 mg/dL 6-26 Creatinine 0.8 mg/dL 0.5-1.4 Calcium 9.7 mg/dL 8.5-10.2 Total Protein 6.9 g/dL 6.0-8.0 Albumin 4.5 g/dL 3.6-4.9 Globulin 2.4 g/dL 2.0-3.5 A/G Ratio 1.9 Ratio 1.0-2.2 Total Bilirubin 1.0 mg/dL 0.1-1.3 Alkaline Phosphatase 53 U/L 24-140 Alt 17 U/L 3-42 Ast 20 U/L 8-42 Anion Gap 9 mmol/L 6-14 Marizol Egfr >60 >60 41 Non Marizol Egfr >60 >60 42 Serum Prot Elect -RL 11/17/2015 [facility] Total Protein 7.2 g/dL (6.4-8.2 ) Total Protein Epp 7.2 g/dL (6.4-8.2) Albumin Calc 4.9 g/dL (3.9-5.1) Alpha 1 Calc 0.2 g/dL (0.1-0.3) Alpha 2 Calc 0.8 g/dL (0.4-1.0) Beta Calc 0.7 g/dL (0.5-1.1) Gamma Calc 0.7 g/dL (0.4-1.2) Monoclonal Calc NO MONOCLONAL ID <SEE NOTE> g/dL ([place]) 43 Albumin Percent 68.1 % (58.8-69.6) Alpha 1 Percent 2.3 % (1.6-3.0) Alpha 2 Percent 10.6 % (7.2-13.2) Beta Percent 10.0 % (8.0-14.7) Gamma Percent 9.0 % (7.3-16.4) Interpretation: NORMAL PATTERN 44 Laboratory test 05/19/2015 [facility] Hepatitis C Virus NONREACTIVE Nonreactive finding Antibody Lipid 05/19/2015 [facility] Cholesterol 197 mg/dL 50-199 Triglycerides 95 mg/dL 30-200 HDL 77 mg/dL 35-85 45 Chol/ HDL Ratio 2.6 ratio Low 3.7-5.6 VLDL 19 mg/dL 2-29 LDL (Calc) 101 mg/dL High 20-99 46 Comprehensive Metabolic (CMP) 05/19/2015 [facility] Sodium 140 mmol/L 134- 142 Potassium 4.4 mmol/L 3.5-5.2 Chloride 104 mmol/L 97-109 Carbon Dioxide 32 mmol/L 24-34 Glucose 88 mg/dL 70-105 BUN 17 mg/dL 6-26 Creatinine 0.8 mg/dL 0.5-1.4 Calcium 9.5 mg/dL 8.5-10.2 Total Protein 6.7 g/dL 6.0-8.0 Albumin 4.6 g/dL 3.6-4.9 Globulin 2.1 g/dL 2.0-3.5 A/G Ratio 2.2 Ratio 1.0-2.2 Total Bilirubin 1.0 mg/dL 0.1-1.3 Alkaline Phosphatase 58 U/L 24-140 Alt 17 U/L 3-42 Ast 22 U/L 8-42 Anion Gap 8 mmol/L 6-14 Marizol Egfr >60 >60 47 Non Marizol Egfr >60 >60 48 Laboratory test finding 05/19/2015 [facility] Pap SEE NOTE 49 Laboratory test finding 05/19/2015 [facility] TSH 1.88 uIU/mL 0.35-4.94 Vit D,25 Hydroxy 41 ng/mL 31-100 CBC With Auto Diff 05/19/2015 [facility] WBC 5.0 K/uL 4.1-11.0 RBC 4.40 M/uL 4.00-5.40 Hemoglobin 14.2 gm/dL 12.0-16.0 Hematocrit 42.5 % 36.0-47.0 MCV 96.5 fL 80.0-97.0 MCH 32.3 pg High 27.0-32.0 MCHC 33.4 g/dL 32.0-36.0 RDW 12.3 % 11.5-14.5 PLT Count 163 K/ul 140-400 Neutrophil 73.4 % 35.0-75.0 Lymphocyte 16.1 % 16.0-52.0 Monocyte 6.4 % 2.0-10.0 Eosinophil 3.3 % 0.0-5.0 Basophil 0.8 % 0.0-4.0 Abs Neutrophils 3.7 K/uL 2.1-8.0 Abs Lymphocytes 0.8 K/uL 0.8-5.5 Abmon 0.3 K/uL 0.1-1.0 Abs Eosinophils 0.2 K/uL 0.0-0.5 Abs Basophils 0.0 K/uL 0.0-0.3 Basic (BMP) 12/23/2014 [facility] Sodium 141 mmol/L 134-142 Potassium 4.7 mmol/L 3.5-5.2 Chloride 105 mmol/L 97-109 Carbon Dioxide 30 mmol/L 24-34 Glucose 83 mg/dL 70-105 BUN 18 mg/dL 6-26 Creatinine 0.9 mg/dL 0.5-1.4 Calcium 9.4 mg/dL 8.5-10.2 Anion Gap 11 mmol/L 6-14 Non Marizol Egfr >60 >60 50 Marizol Egfr >60 >60 51 Laboratory test 11/15/2014 [facility] Urine Culture Microbiology res 52 finding <SEE NOTE> Laboratory test 05/13/2014 [facility] Vit D,25 38 ng/mL 31-100 finding Hydroxy CBC With Auto Diff 05/13/2014 [facility] WBC 4.8 K/uL 4.1-11.0 RBC 4.41 M/uL 4.00-5.40 Hemoglobin 14.6 gm/dL 12.0-16.0 Hematocrit 43.0 % 36.0-47.0 MCV 97.5 fL High 80.0-97.0 MCH 33.1 pg High 27.0-32.0 MCHC 34.0 g/dL 32.0-36.0 RDW 12.6 % 11.5-14.5 PLT Count 166 K/ul 140-400 Neutrophil 66.6 % 35.0-75.0 Lymphocyte 22.4 % 16.0-52.0 Monocyte 6.6 % 2.0-10.0 Eosinophil 3.3 % 0.0-5.0 Basophil 1.1 % 0.0-4.0 Abs Neutrophils 3.2 K/uL 2.1-8.0 Abs Lymphocytes 1.1 K/uL 0.8-5.5 Abmon 0.3 K/uL 0.1-1.0 Abs Eosinophils 0.2 K/uL 0.0-0.5 Abs Basophils 0.1 K/uL 0.0-0.3 CBC With Auto Diff 04/28/2014 [facility] WBC 4.0 K/uL Low 4.1-11.0 53 RBC 4.40 M/uL 4.00-5.40 Hemoglobin 14.8 gm/dL 12.0-16.0 Hematocrit 42.8 % 36.0-47.0 MCV 97.2 fL High 80.0-97.0 MCH 33.5 pg High 27.0-32.0 MCHC 34.5 g/dL 32.0-36.0 RDW 13.0 % 11.5-14.5 PLT Count 169 K/ul 140-400 Neutrophil 67.1 % 35.0-75.0 Lymphocyte 21.6 % 16.0-52.0 Monocyte 6.4 % 2.0-10.0 Eosinophil 3.8 % 0.0-5.0 Basophil 1.1 % 0.0-4.0 Abs Neutrophils 2.7 K/uL 2.1-8.0 Abs Lymphocytes 0.9 K/uL 0.8-5.5 Abmon 0.3 K/uL 0.1-1.0 Abs Eosinophils 0.2 K/uL 0.0-0.5 Abs Basophils 0.0 K/uL 0.0-0.3 Comprehensive Metabolic (CMP) 04/28/2014 [facility] Sodium 139 mmol/L 134- 142 Potassium 4.7 mmol/L 3.5-5.2 Chloride 104 mmol/L 97-109 Carbon Dioxide 30 mmol/L 24-34 Glucose 78 mg/dL 70-105 BUN 16 mg/dL 6-26 Creatinine 0.8 mg/dL 0.5-1.4 Calcium 10.0 mg/dL 8.5-10.2 Total Protein 7.1 g/dL 6.0-8.0 Albumin 4.9 g/dL 3.6-4.9 Globulin 2.2 g/dL 2.0-3.5 A/G Ratio 2.2 Ratio 1.0-2.2 Total Bilirubin 1.2 mg/dL 0.1-1.3 Alkaline Phosphatase 48 U/L 24-140 Alt 12 U/L 3-42 Ast 17 U/L 8-42 Anion Gap 10 mmol/L 6-14 Marizol Egfr >60 >60 54 Non Marizol Egfr >60 >60 55 Lipid 04/28/2014 [facility] Cholesterol 218 mg/dL High 50-199 Triglycerides 81 mg/dL 30-200 HDL 88 mg/dL High 35-85 56 Chol/ HDL Ratio 2.5 ratio Low 3.7-5.6 VLDL 16 mg/dL 2-29 LDL (Calc) 114 mg/dL High 20-99 57 Laboratory test finding 04/28/2014 [facility] TSH 2.43 uIU/mL 0.34-5.60 Free T4 0.91 ng/dL 0.50-1.60 Laboratory test 03/25/2014 [facility] Pap SEE NOTE 58 finding Laboratory test 12/02/2013 [facility] Urine Culture Microbiology res 59, 60 finding <SEE NOTE> Laboratory test 07/14/2013 [facility] Urine Culture Microbiology res Abnormal 61, 62 finding <SEE NOTE> Laboratory test 03/09/2013 [facility] Vitamin B12 582 pg/mL 180-9 63 finding 14 Magnesium 2.0 mg/dL 1.5-2.7 CBC With Auto Diff 03/09/2013 [facility] WBC 4.2 K/uL 4.1-11.0 RBC 4.28 M/uL 4.00-5.40 Hemoglobin 14.3 gm/dL 12.0-16.0 Hematocrit 40.4 % 36.0-47.0 MCV 94.3 fL 80.0-97.0 MCH 33.4 pg High 27.0-32.0 MCHC 35.4 g/dL 32.0-36.0 RDW 12.5 % 11.5-14.5 PLT Count 161 K/ul 140-400 Neutrophil 57.2 % 35.0-75.0 Lymphocyte 31.0 % 16.0-52.0 Monocyte 5.7 % 2.0-10.0 Eosinophil 5.5 % High 0.0-5.0 Basophil 0.6 % 0.0-4.0 Abs Neutrophils 2.4 K/uL 2.1-8.0 Abs Lymphocytes 1.3 K/uL 0.8-5.5 Abmon 0.2 K/uL 0.1-1.0 Abs Eosinophils 0.2 K/uL 0.0-0.5 Abs Basophils 0.0 K/uL 0.0-0.3 Lipid 03/09/2013 [facility] Cholesterol 218 mg/dL High 50-199 Triglycerides 72 mg/dL 30-200 HDL 81 mg/dL 35-85 64 Chol/ HDL Ratio 2.7 ratio Low 3.7-5.6 VLDL 14 mg/dL 2-29 LDL (Calc) 123 mg/dL High 20-99 65 Comprehensive Metabolic (CMP) 03/09/2013 [facility] Sodium 140 mmol/L 134- 142 Potassium 4.6 mmol/L 3.5-5.2 Chloride 105 mmol/L 97-109 Carbon Dioxide 32 mmol/L 24-34 Glucose 89 mg/dL 70-105 BUN 14 mg/dL 6-26 Creatinine 0.8 mg/dL 0.5-1.4 Calcium 9.8 mg/dL 8.5-10.2 Total Protein 6.5 g/dL 6.0-8.0 Albumin 4.6 g/dL 3.6-4.9 Globulin 1.9 g/dL Low 2.0-3.5 A/G Ratio 2.4 Ratio High 1.0-2.2 Total Bilirubin 1.1 mg/dL 0.1-1.3 Alkaline Phosphatase 44 U/L 24-140 Alt 12 U/L 3-42 Ast 18 U/L 8-42 Anion Gap 8 mmol/L 6-14 Marizol Egfr >60 >60 66 Non Marizol Egfr >60 >60 67 Laboratory test 03/09/2013 [facility] TSH 3.08 uIU/mL 0.34-5.60 finding Laboratory test 02/23/2013 [facility] Pap SEE NOTE 68 finding Affirm 06/01/2012 [facility] Trichomonas Negative Negative Vaginalis Gardnerella Vaginalis Negative Negative Catie Species Negative Negative Laboratory test finding 10/28/2011 [facility] Pap SEE NOTE 69 Laboratory test finding 10/14/2011 [facility] TSH 1.88 uIU/mL 0.34-5.60 70 Lipid 10/14/2011 [facility] Cholesterol 192 mg/dL 50-199 Triglycerides 53 mg/dL 30-200 HDL 82 mg/dL 35-85 71 Chol/ HDL Ratio 2.3 ratio Low 3.7-5.6 VLDL 11 mg/dL 2-29 LDL (Calc) 99 mg/dL 20-129 72 CBC With Auto Diff 10/14/2011 [facility] WBC 3.9 K/uL Low 4.1-11.0 RBC 4.28 M/uL 4.00-5.40 Hemoglobin 13.7 gm/dL 12.0-16.0 Hematocrit 41.1 % 36.0-47.0 MCV 95.9 fL 80.0-97.0 MCH 32.1 pg High 27.0-32.0 MCHC 33.5 g/dL 32.0-36.0 RDW 12.8 % 11.5-14.5 PLT Count 148 K/ul 140-400 Neutrophil 52.1 % 35.0-75.0 Lymphocyte 32.3 % 16.0-52.0 Monocyte 7.5 % 2.0-10.0 Eosinophil 7.0 % High 0.0-5.0 Basophil 1.1 % 0.0-4.0 Abs Neutrophils 2.0 K/uL Low 2.1-8.0 Abs Lymphocytes 1.3 K/uL 0.8-5.5 Abs Monocytes 0.3 K/uL 0.1-1.0 Abs Eosinophils 0.3 K/uL 0.0-0.5 Abs Basophils 0.0 K/uL 0.0-0.3 Comprehensive Metabolic (CMP) 10/14/2011 [facility] Sodium 141 mmol/L 134- 142 Potassium 4.4 mmol/L 3.5-5.2 Chloride 104 mmol/L 97-109 Carbon Dioxide 30 mmol/L 24-34 Glucose 85 mg/dL 70-105 BUN 12 mg/dL 6-26 Creatinine 0.8 mg/dL 0.5-1.4 Calcium 9.6 mg/dL 8.5-10.2 Total Protein 6.5 g/dL 6.0-8.0 Albumin 4.6 g/dL 3.6-4.9 Globulin 1.9 g/dL Low 2.0-3.5 A/G Ratio 2.4 Ratio High 1.0-2.2 Total Bilirubin 1.3 mg/dL 0.1-1.3 Alkaline Phosphatase 46 U/L 24-140 Alt 13 U/L 3-42 Ast 17 U/L 8-42 Anion Gap 11 mmol/L 6-14 Marizol Egfr >60 >60 73 Non Marizol Egfr >60 >60 74 CBC With Auto Diff 10/11/2010 [facility] WBC 4.0 K/uL Low 4.1-11.0 75 RBC 4.03 M/uL 4.00-5.40 Hemoglobin 13.5 gm/dL 12.0-16.0 Hematocrit 39.6 % 36.0-47.0 MCV 98.4 fL High 80.0-97.0 MCH 33.6 pg High 27.0-32.0 MCHC 34.1 g/dL 32.0-36.0 RDW 12.4 % 11.5-14.5 PLT Count 157 K/ul 140-400 Neutrophil 54.2 % 35.0-75.0 Lymphocyte 26.7 % 16.0-52.0 Monocyte 7.1 % 2.0-10.0 Eosinophil 11.5 % High 0.0-5.0 Basophil 0.5 % 0.0-4.0 Abs Neutrophils 2.2 K/uL 2.1-8.0 Abs Lymphocytes 1.1 K/uL 0.8-5.5 Abs Monocytes 0.3 K/uL 0.1-1.0 Abs Eosinophils 0.5 K/uL 0.0-0.5 Abs Basophils 0.0 K/uL 0.0-0.3 Laboratory test finding 10/11/2010 [facility] Vitamin B12 448 pg/mL 180- 914 Laboratory test finding 09/04/2010 [facility] Pap SEE NOTE 76 CBC With Auto Diff 09/04/2010 [facility] WBC 3.3 K/uL Low 4.1-11.0 77 RBC 4.26 M/uL 4.00-5.40 Hemoglobin 14.4 gm/dL 12.0-16.0 Hematocrit 41.6 % 36.0-47.0 MCV 97.5 fL High 80.0-97.0 MCH 33.7 pg High 27.0-32.0 MCHC 34.5 g/dL 32.0-36.0 RDW 12.9 % 11.5-14.5 PLT Count 139 K/ul Low 140-400 Neutrophil 48.8 % 35.0-75.0 Lymphocyte 31.9 % 16.0-52.0 Monocyte 9.8 % 2.0-10.0 Eosinophil 9.0 % High 0.0-5.0 Basophil 0.5 % 0.0-4.0 Abs Neutrophils 1.6 K/uL Low 2.1-8.0 Abs Lymphocytes 1.1 K/uL 0.8-5.5 Abs Monocytes 0.3 K/uL 0.1-1.0 Abs Eosinophils 0.3 K/uL 0.0-0.5 Abs Basophils 0.0 K/uL 0.0-0.3 Laboratory test finding 09/04/2010 [facility] FSH 80.4 mIU/ml 78 LH 40.7 mIU/ml 79 TSH 2.23 uIU/mL 0.34-5.60 Comprehensive Metabolic (CMP) 09/04/2010 [facility] Sodium 139 mmol/L 135- 144 Potassium 4.1 mmol/L 3.6-5.2 Chloride 102 mmol/L 97-110 Carbon Dioxide 29 mmol/L 23-32 Glucose 82 mg/dL 70-105 BUN 14 mg/dL 6-22 Creatinine 0.9 mg/dL 0.5-1.3 Calcium 9.4 mg/dL 8.6-10.2 BUN/CR 16 ratio 12-20 Total Protein 6.7 g/dL 5.8-7.8 Albumin 4.4 g/dL 3.5-4.8 Globulin 2.3 g/dL 2.0-3.5 A/G Ratio 1.9 Ratio 1.0-2.2 Total Bilirubin 1.2 mg/dL 0.3-1.2 Alkaline Phosphatase 42 U/L 24-140 Alt 16 U/L 5-45 Ast 21 U/L 12-40 Anion Gap 12 mmol/L 8-16 Non Marizol Egfr >60 >60 80 Marizol Egfr >60 >60 81 Lipid 09/04/2010 [facility] Cholesterol 214 mg/dL High 50-199 Triglycerides 50 mg/dL 10-150 HDL 82 mg/dL 35-85 82 Chol/ HDL Ratio 2.6 ratio Low 3.7-5.6 VLDL 10 mg/dL 2-29 LDL (Calc) 122 mg/dL 20-129 83 Laboratory test 06/06/2010 [facility] Urine Culture Microbiology res 84 finding <SEE NOTE> Laboratory test 11/24/2009 [facility] (Do not Use) [facility] Pap (SEE NOTE ) 85 finding [facility] [place] [address] [phone] CMP 10/11/2009 [facility] (Do not Use) Sodium 138 mmol/L 135-1 86 [facility] [address] [place] [phone] Potassium 4.1 mmol/L 3.6-5.2 Chloride 107 mmol/L 97-110 Carbon Dioxide 27 mmol/L 23-32 Glucose 88 mg/dL 70-105 BUN 14 mg/dL 6-22 Creatinine 0.8 mg/dL 0.5-1.3 BUN/CR 18 Ratio Calcium 9.2 mg/dL 8.6-10.2 Total Protein 6.0 g/dL 5.8-7.8 Albumin 3.9 g/dL 3.5-4.8 Globulin 2.1 g/dL 2.0-3.5 A/G Ratio 1.9 Ratio 1.0-2.2 Total Bilirubin 1.5 mg/dL High 0.3-1.2 Alkaline Phosphatase 39 U/L 24-140 Alt 15 U/L 5-45 Ast 17 U/L 12-40 Anion Gap 8 mmol/L 8-16 GFR Calculation > 60 mL/min 60-175 87 GFR For > 60 mL/min 60-175 88 Lipid Panel 10/11/2009 [facility] (Do not Use) Cholesterol 232 mg/dL High 50-199 [facility] [place] [address] [phone] Triglycerides 61 mg/dL 10-150 HDL 88 mg/dL High 35-85 89 Chol/HDL Ratio 2.6 Ratio Low 3.7-5.6 90 VLDL 12 mg/dL 2-29 LDL (Calc) 132 mg/dL High 20-129 91 Laboratory test 10/11/2009 [facility] (Do not Use) TSH 4.12 uIU/ml 0.34 -5.60 finding [facility] [place] [address] [phone] CBC With Auto Diff 10/11/2009 [facility] (Do not Use) WBC 5.0 K/ul 4.0- 10.9 [facility] [place] [address] [phone] RBC 4.03 M/ul Low 4.20-5.40 Hemoglobin 13.7 GM/dl 12.5-16.0 Hematocrit 40.1 % 36.0-47.0 MCV 99.5 FL High 80.0-97.0 MCH 34.1 pg High 27.0-31.0 MCHC 34.2 g/dL 32.0-36.0 RDW 13.3 % 11.5-14.5 Platelet Count 180 K/ul 140-440 Neutrophils 61.6 % 50-70 Lymphocytes 25.8 % 20-44 Monocytes 8.2 % 2-9 Eosinophil 3.6 % 0-4 Basophil 0.8 % 0-2 Absolute Neutrophils 3.1 K/ul 2.05-7.63 Absolute Lymphocytes 1.3 K/ul 0.8-4.8 Absolute Monocytes 0.4 K/ul 0.1-1.0 Absolute Eosinophils 0.2 K/ul 0.1-0.5 Absolute Basophils 0.0 K/ul 0.0-0.3 Hematology Comment (Comm2) N/A Urinalysis -RL 09/29/2009 [facility] (Do not Use) [place] [address] [phone] Appearance -LA TURBID Specific [place] -LA 1.026 1.003-1.030 Leukocyte Esterase -LA NEGATIVE (Neg) Nitrite -LA NEGATIVE (Neg) PH Urine -LA 7.0 5.0-7.5 Protein Urine-LA NEGATIVE (Neg) Glucose Urine -LA NEGATIVE (Neg) Ketone Urine -LA NEGATIVE (Neg) Urobilinogen -LA 1.0 mg/dL 0-1.0 Bilirubin Urine -LA NEGATIVE (Neg) Blood/HGB Urine-RL NEGATIVE (Neg) 92 Laboratory test 09/29/2009 [facility] (Do not Use) Cytology (SEE NOTE) 93 finding [facility] [place] [address] Specimen - [place] [phone] Laboratory test 09/29/2009 [facility] (Do not Use) Urine [place] [address] [phone] Laboratory test 06/20/2009 [facility] (Do not Use) Urine Culture >100,000 Abnormal 94 finding [facility] CFU/[place] [address] <SEE NOTE> [phone] Preliminary Ur. Culture Result GRAM NEGATIVE RO <SEE NOTE> Abnormal 95 Gram Negative 06/20/2009 [facility] (Do not Use) Ampicillin (Am) [place] [address] [phone] Ampicillin/Sulbactam (Anand) SENSITIVE Cefazolin (CZ) SENSITIVE Ceftriaxone ([employer]otor[employer]iding [employer]structor SENSITIVE Ciprofloxacin (Cip) SENSITIVE Nitrofurantoin (FT) SENSITIVE Trimethoprim/Sulfamethoxazole (SXT) SENSITIVE CBC With Auto Diff 09/05/2008 [facility] (Do not Use) WBC 5.6 K/ul 4.0- 10.9 96 [place] [address] [phone] RBC 4.11 M/ul Low 4.20-5.40 Hemoglobin 13.9 GM/dl 12.5-16.0 Hematocrit 40.3 % 36.0-47.0 MCV 97.9 FL High 80.0-97.0 MCH 33.8 pg High 27.0-31.0 MCHC 34.5 g/dL 32.0-36.0 RDW 12.5 % 11.5-14.5 Platelet Count 175 K/ul 140-440 Neutrophils 64.5 % 50-70 Lymphocytes 23.9 % 20-44 Monocytes 6.9 % 2-9 Eosinophil 3.9 % 0-4 Basophil 0.8 % 0-2 Absolute Neutrophils 3.6 K/ul 2.05-7.63 Absolute Lymphocytes 1.3 K/ul 0.8-4.8 Absolute Monocytes 0.4 K/ul 0.1-1.0 Absolute Eosinophils 0.2 K/ul 0.1-0.5 Absolute Basophils 0.0 K/ul 0.0-0.3 Hematology Comment (Comm2) N/A CMP 09/05/2008 [facility] (Do not Use) Sodium 140 mmol/L 135-144 [facility] [place], [place] [id number] [phone] Potassium 4.1 mmol/L 3.6-5.2 Chloride 102 mmol/L 97-110 Carbon Dioxide 31 mmol/L 23-33 Glucose 85 mg/dL 70-105 BUN 15 mg/dL 6-22 Creatinine 0.8 mg/dL 0.5-1.3 BUN/CR 19 Ratio 12.0-20.0 Calcium 9.5 mg/dL 8.6-10.2 Total Protein 6.2 g/dL 5.8-7.8 Albumin 4.1 g/dL 3.5-4.8 Globulin 2.1 g/dL 2.0-3.5 A/G Ratio 2.0 Ratio 1.0-2.2 Total Bilirubin 1.2 mg/dL 0.3-1.2 Alkaline Phosphatase 43 U/L 24-140 Alt 18 U/L 4-45 Ast 21 U/L 12-40 Anion Gap 11 mmol/L 8-16 GFR Calculation > 60 mL/min 60-175 97 GFR For > 60 mL/min 60-175 98 Laboratory test finding 09/05/2008 [facility] (Do not Use) FSH 37.12 mIU/ ml 99 [facility] [place], [place] [id number] [phone] LH 25.17 mIU/ml 100 TSH 1.97 uIU/ml 0.34-5.60 Vitamin D, 25 Hydroxy 41 ng/mL 31-100 Laboratory test 09/05/2008 [facility] (Do not Use) [facility] Pap - (SEE NOTE) 101 finding [facility] [place] [address] [phone] Basic (BMP) 06/14/2008 [facility] (Do not Use) Sodium 140 mmol/L 135- 14 102 [facility] [address] [place] [phone] Potassium 4.4 mmol/L 3.6-5.2 Chloride 105 mmol/L 97-110 Carbon Dioxide 28 mmol/L 23-33 Glucose 78 mg/dL 70-105 BUN 12 mg/dL 6-22 Creatinine 0.7 mg/dL 0.5-1.3 BUN/CR 17 Ratio 12.0-20.0 Anion Gap 11 mmol/L 8-16 Calcium 9.2 mg/dL 8.6-10.2 GFR Calculation > 60 mL/min 60-175 103 GFR For > 60 mL/min 60-175 104 Laboratory test 06/14/2008 [facility] (Do not Use) Hemoglobin A1c 5.6 % 4.1-6.5 [place] [address] [phone] Urinalysis With 06/01/2008 [facility] (Do not Use) Rout Urine W/ N/A 105 Microscopic-RL [facility] [place] [address] [phone] Color -LA YELLOW Appearance -LA CLOUDY Specific [place] -LA 1.006 1.003-1.030 PH Urine -LA 7.5 5.0-7.5 Leukocyte Esterase -LA 3+ Abnormal (Neg) Nitrite -LA NEGATIVE (Neg) Protein Urine-LA NEGATIVE (Neg) Glucose Urine -LA NEGATIVE (Neg) Ketone Urine -LA NEGATIVE (Neg) Urobilinogen -LA 0.2 mg/dL 0-1.0 Bilirubin Urine -LA NEGATIVE (Neg) Blood/HGB Urine-RL 3+ Abnormal (Neg) Urine WBC -LA * 100-150 /HPF (0-5) Urine RBC -LA * 25-50 /HPF (0-2) Epithelial Cells -LA 1+ /HPF Abnormal Bacteria -LA 4+ /HPF Abnormal 106 CBC With Auto Diff 08/14/2007 [facility] (Do not Use) WBC 5.2 K/ul 4.0- 10.9 [facility] [place] [address] [phone] RBC 4.14 M/ul Low 4.20-5.40 Hemoglobin 14.0 GM/dl 12.5-16.0 Hematocrit 40.2 % 36.0-47.0 MCV 97.1 FL High 80.0-97.0 MCH 33.8 pg High 27.0-31.0 MCHC 34.8 g/dL 32.0-36.0 RDW 12.1 % 11.5-14.5 Platelet Count 169 K/ul 140-440 Neutrophils 72.9 % High 50-70 Lymphocytes 18.7 % Low 20-44 Monocytes 5.9 % 2-9 Eosinophil 1.6 % 0-4 Basophil 0.9 % 0-2 Absolute Neutrophils 3.8 K/ul 2.05-7.63 Absolute Lymphocytes 1.0 K/ul 0.8-4.8 Absolute Monocytes 0.3 K/ul 0.1-1.0 Absolute Eosinophils 0.1 K/ul 0.1-0.5 Absolute Basophils 0.0 K/ul Low 0.1-0.3 Iron Panel 08/14/2007 [facility] (Do not Use) Iron, Total 126 g/dL 28 -170 [facility] [place] [address] [phone] Transferrin 212 mg/dL 192-382 Tibc (Calc) 297 g/dL 261-478 % Saturation (Calc) 42.4 % 13.0-45.0 Laboratory test 08/14/2007 [facility] (Do not Use) TSH 1.85 uIU/ml 0.34 -5.60 finding [facility] [place] [address] [phone] CBC With Auto Diff 11/21/2006 [facility] (Do not Use) WBC 5.6 K/ul 4.0- 10.9 [facility] [place] [address] [phone] RBC 4.03 M/ul Low 4.20-5.40 Hemoglobin 13.5 GM/dl 12.5-16.0 Hematocrit 38.9 % 36.0-47.0 MCV 96.5 FL 80.0-97.0 MCH 33.4 pg High 27.0-31.0 MCHC 34.6 g/dL 32.0-36.0 RDW 12.0 % 11.5-14.5 Platelet Count 189 K/ul 140-440 Neutrophils 74.5 % High 50-70 Lymphocytes 17.0 % Low 20-44 Monocytes 5.8 % 2-9 Eosinophil 2.7 % 0-4 Basophil 0.0 % 0-2 Absolute Neutrophils 4.1 K/ul 2.05-7.63 Absolute Lymphocytes 1.0 K/ul 0.8-4.8 Absolute Monocytes 0.3 K/ul 0.1-1.0 Absolute Eosinophils 0.2 K/ul 0.1-0.5 Absolute Basophils 0.0 K/ul Low 0.1-0.3 Laboratory test 11/21/2006 [facility] (Do not Use) Ferritin 10.0 ng/ml Low 11-306 finding [facility] [place] [address] [phone] TSH 1.66 uIU/ml 0.34-5.60 Iron Panel 11/21/2006 [facility] (Do not Use) Iron, Total 137 g/dL 28 -170 [facility] [place] [address] [phone] Transferrin 274 mg/dL 192-382 Tibc (Calc) 384 g/dL 261-478 % Saturation (Calc) 35.7 % 13.0-45.0 Lipid Panel 11/21/2006 [facility] (Do not Use) Cholesterol 201 mg/dL High 50-199 [facility] [place] [address] [phone] Triglycerides 70 mg/dL 10-150 HDL 90 mg/dL High 35-85 Chol/HDL Ratio 2.2 Ratio VLDL 14 mg/dL LDL (Calc) 97 mg/dL 20-129 CMP 11/21/2006 [facility] (Do not Use) Sodium 143 mmol/L 135-144 [facility] [place] [address] [phone] Potassium 4.5 mmol/L 3.6-5.2 Chloride 107 mmol/L 97-110 Carbon Dioxide 31 mmol/L 23-33 Glucose 61 mg/dL Low 70-105 BUN 15 mg/dL 6-22 Creatinine 0.9 mg/dL 0.5-1.3 BUN/CR 17 Ratio 12.0-20.0 Calcium 9.4 mg/dL 8.6-10.2 Total Protein 6.3 g/dL 5.8-7.8 Albumin 3.9 g/dL 3.5-4.8 Globulin 2.4 g/dL 2.0-3.5 A/G Ratio 1.6 Ratio 1.0-2.2 Total Bilirubin 1.4 mg/dL High 0.3-1.2 Alkaline Phosphatase 40 U/L 24-140 Alt 18 U/L 4-45 Ast 19 U/L 12-40 Anion Gap 10 mmol/L 8-16 GFR Calculation > 60 mL/min 107 GFR For > 60 mL/min 108 Urine Microscopic, 11/05/2006 [facility] (Do not Use) Urine WBC * 25-50 / HPF (0-5) Only -RL [facility] [place] [address] [phone] Urine RBC -LA 0-2 /HPF (0-2) Epithelial Cells -LA 1+ /HPF Abnormal Bacteria -LA 3+ /HPF Abnormal Mucus -LA 1+ /HPF Abnormal Laboratory test 11/05/2006 [facility] (Do not Use) Urine >100,000 Abnormal 109 finding [facility] Culture CFU/[place] <[place] [address] NOTE> [phone] Preliminary Ur. Culture Result GRAM NEGATIVE RO <SEE NOTE> Abnormal 110 Urinalysis -RL 11/05/2006 [facility] (Do not Use) Color -LA YELLOW [facility] [place], [place] [id number] [phone] Appearance -LA CLOUDY Specific [place] -LA 1.024 1.003-1.030 Leukocyte Esterase -LA 2+ Abnormal (Neg) Nitrite -LA POSITIVE Abnormal (Neg) PH Urine -LA 6.5 5.0-7.5 Protein Urine-LA 1+ Abnormal (Neg) Glucose Urine -LA NEGATIVE (Neg) Ketone Urine -LA NEGATIVE (Neg) Urobilinogen -LA NORMAL (Norm) Bilirubin Urine -LA NEGATIVE (Neg) Blood/HGB Urine-RL 1+ Abnormal (Neg) Gram Negative 11/05/2006 [facility] (Do not Use) Amoxicillin/Clavulanic SENSITIVE Sensitivity [facility] [place] [address] [phone] Ampicillin SENSITIVE Cefotaxime SENSITIVE Ceftriaxone SENSITIVE Cephalothin SENSITIVE Ciprofloxacin SENSITIVE Nitrofurantoin SENSITIVE Tetracycline SENSITIVE Trimethoprim/Sulfa SENSITIVE CBC 09/03/2004 [facility] (Do not Use) WBC 5.9 K/ul 4.1-10.9 [facility] [place] [address] [phone] RBC 3.97 M/ul Low 4.20-6.30 Hemoglobin 13.4 GM/dl 12.5-15.0 Hematocrit 39.2 % 37.0-51.0 MCV 98.8 FL High 80.0-97.0 MCH 33.9 pg High 26.0-32.0 MCHC 34.3 g/dL 31.0-36.0 RDW 11.9 % 11.5-14.5 Platelet Count 195 K/ul 140-440 Neutrophils 70.3 % High 50-70 Lymphocytes 20.6 % 20-44 Monocytes 5.0 % 2-9 Eosinophil 3.5 % 0-4 Basophil 0.6 % 0-2 Absolute Neutrophils 4.2 K/ul 2.05-7.63 Absolute Lymphocytes 1.2 K/ul 0.8-4.8 Absolute Monocytes 0.3 K/ul 0.1-1.0 Absolute Eosinophils 0.2 K/ul 0.1-0.5 Absolute Basophils 0.0 K/ul Low 0.1-0.3 Methylmalonic 12/27/2003 [facility] (Do not Use) Methylmalonic 177 73- 376 111 Acid,Serum - [facility] Acid, Serum nmol/[place] [address] [phone] CBC 12/27/2003 [facility] (Do not Use) WBC 5.0 K/ul 4.1-10.9 [facility] [place] [address] [phone] RBC 4.28 M/ul 4.20-6.30 Hemoglobin 14.3 GM/dl 12.5-15.0 Hematocrit 42.5 % 37.0-51.0 MCV 99.5 FL High 80.0-97.0 MCH 33.5 pg High 26.0-32.0 MCHC 33.7 g/dL 31.0-36.0 RDW 11.5 % 11.5-14.5 Platelet Count 181 K/ul 140-440 Neutrophils 66.3 % 50-70 Lymphocytes 20.9 % 20-44 Monocytes 5.8 % 2-9 Eosinophil 5.2 % High 0-4 Basophil 1.8 % 0-2 Absolute Neutrophils 3.3 K/ul 2.05-7.63 Absolute Lymphocytes 1.0 K/ul 0.8-4.8 Absolute Monocytes 0.3 K/ul 0.1-1.0 Absolute Eosinophils 0.3 K/ul 0.1-0.5 Absolute Basophils 0.1 K/ul 0.1-0.3 Laboratory test 12/27/2003 [facility] (Do not Use) Vitamin B12 820 pg/mL 230-1050 finding [facility] [place] [place] [address] [phone] Folate Folate result gr <SEE NOTE> ng/ml 3.0-16.0 112 Ferritin 17.2 ng/ml 15-200 CBC 08/05/2003 [facility] (Do not Use) WBC 6.9 K/ul 4.1-10.9 [facility] [place] [place] [address] [phone] RBC 4.49 M/ul 4.20-6.30 Hemoglobin 14.8 GM/dl 12.5-15.0 Hematocrit 45.0 % 37.0-51.0 MCV 100.4 FL High 80.0-97.0 MCH 33.0 pg High 26.0-32.0 MCHC 32.9 g/dL 31.0-36.0 RDW 12.0 % 11.5-14.5 Platelet Count 199 K/ul 140-440 Neutrophils 73.8 % High 50-70 Lymphocytes 17.7 % Low 20-44 Monocytes 6.0 % 2-9 Eosinophil 1.8 % 0-4 Basophil 0.7 % 0-2 Absolute Neutrophils 5.2 K/ul 2.05-7.63 Absolute Lymphocytes 1.2 K/ul 0.8-4.8 Absolute Monocytes 0.4 K/ul 0.1-1.0 Absolute Eosinophils 0.1 K/ul 0.1-0.5 Absolute Basophils 0.0 K/ul Low 0.1-0.3 Laboratory test 08/05/2003 [facility] (Do not Use) TSH 1.97 uIU/ml 0.50 -6.00 finding [place] [address] [phone] CMP 08/05/2003 [facility] (Do not Use) Sodium 141 mmol/L 135-145 [place] [address] [phone] Potassium 3.7 mmol/L 3.4-5.3 Chloride 103 mmol/L 98-111 Carbon Dioxide 29 mmol/L 22-33 Glucose 81 mg/dL 70-105 BUN 14 mg/dL 6-26 Creatinine 0.8 mg/dL 0.5-1.5 BUN/CR 18 Ratio 12.0-20.0 Calcium 9.3 mg/dL 8.6-10.3 Total Protein 7.0 g/dL 6.2-8.3 Albumin 4.4 g/dL 3.5-5.0 Globulin 2.6 g/dL Low 2.7-4.3 A/G Ratio 1.7 Ratio 1.0-2.2 Total Bilirubin 1.7 mg/dL High 0.1-1.3 Ast 16 U/L 8-42 Alt 12 U/L 3-42 Alkaline Phosphatase 34 U/L 24-108 Anion Gap 13 mmol/L 10-20 Lipid Panel 08/05/2003 [facility] (Do not Use) Cholesterol 182 mg/dL 50 -199 [place] [address] [phone] Triglycerides 45 mg/dL 30-200 HDL 84 mg/dL 35-85 Chol/HDL Ratio 2.2 Ratio VLDL 9 mg/dL LDL (Calc) 89 mg/dL 20-129 Laboratory test 08/05/2003 [facility] (Do not Use) Rapid Plasma NON- REACTIVE finding [facility] [place] ([place]) [place] [address] [phone] Laboratory test 06/21/2003 [facility] (Do not Use) Chlamydia By NEGATIVE Negative finding [facility] [place] [address] [phone] Chlamydia And 06/21/2003 [facility] (Do not Use) GC By Dna NEGATIVE Negative GC [facility] [place] [address] [phone] Laboratory test 12/15/2001 [facility] (Do not Use) TSH 1.87 uIU/ml 0.50 -6.00 [place] [address] [phone] CBC 12/15/2001 [facility] (Do not Use) WBC 6.2 K/ul 4.1-10.9 [facility] [place], [place] [id number] [phone] RBC 4.36 M/ul 4.2-6.3 Hemoglobin 14.1 GM/dl 12.0-16.0 Hematocrit 42.7 % 37.0-51.0 MCV 97.8 FL High 80-97 MCH 32.2 pg High 26.0-32.0 MCHC 33.0 g/dL 31.0-36.0 RDW 11.5 % 11.5-14.5 Platelet Count 188 K/ul 140-440 Neutrophils 74.5 % High 50-70 Lymphocytes 17.4 % Low 20-44 Monocytes 4.7 % 2-9 Eosinophil 2.7 % 0-4 Basophil 0.7 % 0-2 Absolute Neutrophils 4.6 K/ul 2.05-7.63 Absolute Lymphocytes 1.1 K/ul 0.8-4.8 Absolute Monocytes 0.3 K/ul 0.1-1.0 Absolute Eosinophils 0.2 K/ul 0.1-0.5 Absolute Basophils 0.0 K/ul Low 0.1-0.3 1 Specimen received unspun X3 This sample is drawn by:NB. 2 Interpretation: <0.5 -9 IU/ml Negative 10-15 IU/ml Equivocal >15.0 IU/ml Positive 3 This sample is drawn by:NB. 4 A Negative serologic test for Lyme Disease indicates no serologic evidence of infection with B burgdorferi at the time this specimen was collected. A repeat specimen should be collected in 2 to 4 weeks if clinically indicated. Unless otherwise specified, testing performed by [facility] [address] [place] [id number] 5 Per NCEP ATP III Guidelines: Results lower than 40 mg/dL are suggestive of increased risk for coronary artery disease. Results > or=to 60 mg/dL are considered a negative risk factor. 6 Per NCEP ATP III Guidelines: Normal Population <130 Patients with medical conditions: CHD/DM Optimal: <100 Borderline high: 130-159 High: 160-189 Very high: >189 7 Clinical Guidelines for recommended serum 25(OH)Vitamin D Deficient at less than 20 ng/mL Insufficient at 20 to <30 ng/mL Sufficient at 30-100 ng/mL Toxicity at greater than 100 ng/mL 8 Updated reference range on new analyzer 9 Updated reference range on new analyzer 10 Concerning GFR Guidelines: Normal function or mild renal disease, if clinically at risk: >/=60 mL/min Moderately decreased: 30-59 Severely decreased: 15-29 Renal failure: <15 Glomerular Filtration Rate (GFR) is estimated based on the MDRD equation, which assumes a steady state for creatinine as recommended by the National Kidney Disease Education Program in conjunction with the National Institutes of Health and the National Kidney Foundation. Clinical conditions in which it may be necessary to measure GFR by using clearance methods include extremes of age and body size, severe malnutrition or obesity, diseases of skeletal muscle, paraplegia or quadriplegia, vegetarian diet, rapidly changing kidney function, and calculation of the dose of potentially toxic drugs that are excreted by the kidneys. 11 Concerning GFR Guidelines for Americans: Normal function or mild renal disease, if clinically at risk: >/=60 mL/min Moderately decreased: 30-59 Severely decreased: 15-29 Renal failure: <15 12 Updated Reference Range [address] [place] [address] CYTOLOGY REPORT Source of Specimen(s): Sure[facility] Pap Smear (NOS) - One Vial Date of Last Menstrual Period: None Provided Specimen Adequacy SATISFACTORY FOR EVALUATION PRESENCE OF ENDOCERVICAL/TRANSFORMATION ZONE COMPONENT General Categorization NEGATIVE FOR INTRAEPITHELIAL LESION OR MALIGNANCY Interpretation NEGATIVE FOR INTRAEPITHELIAL LESION OR MALIGNANCY Reported: 05/14/2018 15:16 Electronically Signed Out By Lashawn PERALTA(ASCP) [facility] ICD9 Code: Z01.411 CPT code: A: [id number] Unless otherwise specified, testing performed by [facility] [place] [address] 14 Microbiology results SOURCE Clean Catch Midstream COLONY COUNT >100,000 CFU/ML PRELIMINARY RESULT Gram Negative Bree. ID & Sensitivity to Follow. 12/27/2017 1:47 PM FINAL RESULT Escherichia coli ESBL (Isolate 1) Sensitivity Analysis Isolate 1 --------- AMIKACIN <=16 S AMOXICILLIN/CLAVULANATE <=8/4 S AMPICILLIN >16 R* AMPICILLIN/SULBACTAM >16/8 R CEFEPIME >16 R* CEFOTAXIME >32 ESBL CEFTRIAXONE >32 ESBL CEFUROXIME >16 R* CIPROFLOXACIN <=1 S ERTAPENEM <=0.5 S GENTAMYCIN <=2 S IMIPENEM <=1 S LEVOFLOXACIN <=2 S NITROFURANTOIN <=32 S PIPERACILLIN/TAZOBACTAM <=16 S TETRACYCLINE >8 R TOBRAMYCIN <=4 S TRIMETHOPRIM/SULFAMETHOXAZ <=2/38 S S=Sensitive;I=Indeterminate;R=Resistant 15 12/30/17 (FriDec 30) 03:57 PM HAWA GONSALEZ she was put on macrobid which is susp. /cs 16 Updated reference range on new analyzer 17 Updated reference range on new analyzer 18 Concerning GFR Guidelines for Americans: Normal function or mild renal disease, if clinically at risk: >/=60 mL/min Moderately decreased: 30-59 Severely decreased: 15-29 Renal failure: <15 19 Concerning GFR Guidelines: Normal function or mild renal disease, if clinically at risk: >/=60 mL/min Moderately decreased: 30-59 Severely decreased: 15-29 Renal failure: <15 Glomerular Filtration Rate (GFR) is estimated based on the MDRD equation, which assumes a steady state for creatinine as recommended by the National Kidney Disease Education Program in conjunction with the National Institutes of Health and the National Kidney Foundation. Clinical conditions in which it may be necessary to measure GFR by using clearance methods include extremes of age and body size, severe malnutrition or obesity, diseases of skeletal muscle, paraplegia or quadriplegia, vegetarian diet, rapidly changing kidney function, and calculation of the dose of potentially toxic drugs that are excreted by the kidneys. 20 Updated Reference Range 21 Per NCEP ATP III Guidelines: Results lower than 40 mg/dL are suggestive of increased risk for coronary artery disease. Results > or=to 60 mg/dL are considered a negative risk factor. 22 Per NCEP ATP III Guidelines: Normal Population <130 Patients with medical conditions: CHD/DM Optimal: <100 Borderline high: 130-159 High: 160-189 Very high: >189 23 Clinical Guidelines for recommended serum 25(OH)Vitamin D Deficient at less than 20 ng/mL Insufficient at 20 to <30 ng/mL Sufficient at 30-100 ng/mL Toxicity at greater than 100 ng/mL 24 New Assay and Reference Range in use 11/10/17. Unless otherwise specified, testing performed by [facility] [address] [place] [id number] 25 Microbiology results SOURCE Clean Catch Midstream COLONY COUNT >100,000 CFU/ML PRELIMINARY RESULT Gram positive cocci. ID & Sensitivity to Follow. 10/14/2017 2:59 PM FINAL RESULT Enterococcus faecalis (Isolate 1) Sensitivity Analysis Isolate 1 --------- AMPICILLIN <=2 S CIPROFLOXACIN <=1 S GENTAMYCIN HIGH LEVEL (SYN >500 R LEVOFLOXACIN <=1 S LINEZOLID 2 S NITROFURANTOIN <=32 S PENICILLIN 2 S TETRACYCLINE >8 R VANCOMYCIN 2 S S=Sensitive;I=Indeterminate;R=Resistant 10/15/17 (FriOct 15) 05:07 PM HO BITER treated with macrobid 27 Microbiology results SOURCE Clean Catch Midstream COLONY COUNT >100,000 CFU/ML FINAL RESULT Enterococcus faecalis (Isolate 1) Sensitivity Analysis Isolate 1 --------- AMPICILLIN <=2 S CIPROFLOXACIN <=1 S GENTAMYCIN HIGH LEVEL (SYN <=500 S LEVOFLOXACIN <=1 S LINEZOLID 2 S NITROFURANTOIN <=32 S PENICILLIN 2 S TETRACYCLINE >8 R S=Sensitive;I=Indeterminate;R=Resistant 01/30/17 (Jan 30) 08:56 AM HO BITER cipro sensitive 29 Updated reference range on new analyzer 30 Updated reference range on new analyzer 31 Concerning GFR Guidelines for Americans: Normal function or mild renal disease, if clinically at risk: >/=60 mL/min Moderately decreased: 30-59 Severely decreased: 15-29 Renal failure: <15 32 Concerning GFR Guidelines: Normal function or mild renal disease, if clinically at risk: >/=60 mL/min Moderately decreased: 30-59 Severely decreased: 15-29 Renal failure: <15 Glomerular Filtration Rate (GFR) is estimated based on the MDRD equation, which assumes a steady state for creatinine as recommended by the National Kidney Disease Education Program in conjunction with the National Institutes of Health and the National Kidney Foundation. Clinical conditions in which it may be necessary to measure GFR by using clearance methods include extremes of age and body size, severe malnutrition or obesity, diseases of skeletal muscle, paraplegia or quadriplegia, vegetarian diet, rapidly changing kidney function, and calculation of the dose of potentially toxic drugs that are excreted by the kidneys. 33 Updated reference range on new analyzer 34 Unless otherwise specified, testing performed by [facility] [address] [place] [id number] 35 Per NCEP ATP III Guidelines: Results lower than 40 mg/dL are suggestive of increased risk for coronary artery disease. Results > or=to 60 mg/dL are considered a negative risk factor. 36 Per NCEP ATP III Guidelines: Normal Population <130 Patients with medical conditions: CHD/DM Optimal: <100 Borderline high: 130-159 High: 160-189 Very high: >189 37 Microbiology results SOURCE URINE COLONY COUNT >100,000 CFU/ML PRELIMINARY RESULT Gram Negative Bree. ID & Sensitivity to Follow. FINAL RESULT Escherichia coli (Isolate 1) Sensitivity Analysis Isolate 1 --------- AMIKACIN <=16 S AMPICILLIN <=8 S AMPICILLIN/SULBACTAM <=8/4 S AZTREONAM <=4 S CEFAZOLIN <=2 S CEFEPIME <=8 S CEFTAZIDIME <=1 S CEFTRIAXONE <=1 S CIPROFLOXACIN <=1 S ERTAPENEM <=0.5 S GENTAMYCIN <=2 S IMIPENEM <=1 S LEVOFLOXACIN <=2 S NITROFURANTOIN <=32 S PIPERACILLIN/TAZOBACTAM <=16 S TETRACYCLINE >8 R TOBRAMYCIN <=4 S TRIMETHOPRIM/SULFAMETHOXAZ >2/38 R S=Sensitive;I=Indeterminate;R=Resistant 38 88 Consistent with previous result(s). 39 Per NCEP ATP III Guidelines: Results lower than 40 mg/dL are suggestive of increased risk for coronary artery disease. Results > or=to 60 mg/dL are considered a negative risk factor. 40 Per NCEP ATP III Guidelines: Normal Population <130 Patients with medical conditions: CHD/DM Optimal: <100 Borderline high: 130-159 High: 160-189 Very high: >189 41 Concerning GFR Guidelines for Americans: Normal function or mild renal disease, if clinically at risk: >/=60 mL/min Moderately decreased: 30-59 Severely decreased: 15-29 Renal failure: <15 42 Concerning GFR Guidelines: Normal function or mild renal disease, if clinically at risk: >/=60 mL/min Moderately decreased: 30-59 Severely decreased: 15-29 Renal failure: <15 Glomerular Filtration Rate (GFR) is estimated based on the MDRD equation, which assumes a steady state for creatinine as recommended by the National Kidney Disease Education Program in conjunction with the National Institutes of Health and the National Kidney Foundation. Clinical conditions in which it may be necessary to measure GFR by using clearance methods include extremes of age and body size, severe malnutrition or obesity, diseases of skeletal muscle, paraplegia or quadriplegia, vegetarian diet, rapidly changing kidney function, and calculation of the dose of potentially toxic drugs that are excreted by the kidneys. 43 NO MONOCLONAL IDENTIFIED 44 Jamal PIERRE MD 11/22/15 Unless otherwise specified, testing performed by [facility] [address] [place] [id number] 45 Per NCEP ATP III Guidelines: Results lower than 40 mg/dL are suggestive of increased risk for coronary artery disease. Results > or=to 60 mg/dL are considered a negative risk factor. 46 Per NCEP ATP III Guidelines: Normal Population <130 Patients with medical conditions: CHD/DM Optimal: <100 Borderline high: 130-159 High: 160-189 Very high: >189 47 Concerning GFR Guidelines for Americans: Normal function or mild renal disease, if clinically at risk: >/=60 mL/min Moderately decreased: 30-59 Severely decreased: 15-29 Renal failure: <15 48 Concerning GFR Guidelines: Normal function or mild renal disease, if clinically at risk: >/=60 mL/min Moderately decreased: 30-59 Severely decreased: 15-29 Renal failure: <15 Glomerular Filtration Rate (GFR) is estimated based on the MDRD equation, which assumes a steady state for creatinine as recommended by the National Kidney Disease Education Program in conjunction with the National Institutes of Health and the National Kidney Foundation. Clinical conditions in which it may be necessary to measure GFR by using clearance methods include extremes of age and body size, severe malnutrition or obesity, diseases of skeletal muscle, paraplegia or quadriplegia, vegetarian diet, rapidly changing kidney function, and calculation of the dose of potentially toxic drugs that are excreted by the kidneys. 49 [facility] [address] GYNECOLOGIC CYTOLOGY REPORT Accession Number: [id number] Source of Specimen(s): A: SurePath Vaginal/ Cervical/ Endocervical Pap Smear - One Vial Clinical Diagnosis and History: Date of Last Menstrual Period: None Provided Other Clinical Conditions: REFLEX TO HPV ASSAY IF RESULTS OF THIS PAP ARE ASCUS Specimen Adequacy Satisfactory for evaluation Presence of endocervical/transformation zone component General Categorization Negative for intraepithelial lesion or malignancy Interpretation NEGATIVE FOR INTRAEPITHELIAL LESION OR MALIGNANCY Reported: 05/23/2015 Electronically Signed Out By Rosario Chaudhary SCT(ASCP)([facility]) [facility] jcm Unless otherwise specified, testing performed [facility] [address] [id number] 50 Concerning GFR Guidelines: Normal function or mild renal disease, if clinically at risk: >/=60 mL/min Moderately decreased: 30-59 Severely decreased: 15-29 Renal failure: <15 Glomerular Filtration Rate (GFR) is estimated based on the MDRD equation, which assumes a steady state for creatinine as recommended by the National Kidney Disease Education Program in conjunction with the National Institutes of Health and the National Kidney Foundation. Clinical conditions in which it may be necessary to measure GFR by using clearance methods include extremes of age and body size, severe malnutrition or obesity, diseases of skeletal muscle, paraplegia or quadriplegia, vegetarian diet, rapidly changing kidney function, and calculation of the dose of potentially toxic drugs that are excreted by the kidneys. 51 Concerning GFR Guidelines for Americans: Normal function or mild renal disease, if clinically at risk: >/=60 mL/min Moderately decreased: 30-59 Severely decreased: 15-29 Renal failure: <15 52 Microbiology results SOURCE URINE FINAL RESULT No growth 53 This sample is drawn by: 54 Concerning GFR Guidelines for Americans: Normal function or mild renal disease, if clinically at risk: >/=60 mL/min Moderately decreased: 30-59 Severely decreased: 15-29 Renal failure: <15 55 Concerning GFR Guidelines: Normal function or mild renal disease, if clinically at risk: >/=60 mL/min Moderately decreased: 30-59 Severely decreased: 15-29 Renal failure: <15 Glomerular Filtration Rate (GFR) is estimated based on the MDRD equation, which assumes a steady state for creatinine as recommended by the National Kidney Disease Education Program in conjunction with the National Institutes of Health and the National Kidney Foundation. Clinical conditions in which it may be necessary to measure GFR by using clearance methods include extremes of age and body size, severe malnutrition or obesity, diseases of skeletal muscle, paraplegia or quadriplegia, vegetarian diet, rapidly changing kidney function, and calculation of the dose of potentially toxic drugs that are excreted by the kidneys. 56 Per NCEP ATP III Guidelines: Results lower than 40 mg/dL are suggestive of increased risk for coronary artery disease. Results > or=to 60 mg/dL are considered a negative risk factor. 57 Per NCEP ATP III Guidelines: Normal Population <130 Patients with medical conditions: CHD/DM Optimal: <100 Borderline high: 130-159 High: 160-189 Very high: >189 58 [employer] [facility] [address] GYNECOLOGIC CYTOLOGY REPORT Accession Number: [id number] Source of Specimen(s): A: [facility] Vaginal/ Cervical/ Endocervical Pap Smear - One Vial Clinical Diagnosis and History: Date of Last Menstrual Period: None Provided Other Clinical Conditions: REFLEX TO HPV ASSAY IF RESULTS OF THIS PAP ARE ASCUS Specimen Adequacy Satisfactory for evaluation Presence of endocervical/transformation zone component General Categorization Negative for intraepithelial lesion or malignancy Interpretation NEGATIVE FOR INTRAEPITHELIAL LESION OR MALIGNANCY Reported: 03/29/2014 Electronically Signed Out By Lashawn PERALTA(ASCP) [facility] placido Unless otherwise specified, testing performed by [facility] [place] [address] [place] [address] 59 This sample is drawn by:BR [employer] 60 Microbiology results SOURCE MIDU COLONY COUNT >100,000 FINAL RESULT Mixed urogenital bridger consistent with contamination. Request fresh specimen if indicated. 61 This sample is drawn by:CT 62 Microbiology results SOURCE URINE COLONY COUNT >100,000 CFU/ML PRELIMINARY RESULT Gram Negative Bree. ID & Sensitivity to Follow. FINAL RESULT Escherichia coli (Isolate 1) Sensitivity Analysis Isolate 1 --------- AMPICILLIN <=2 S AMPICILLIN/SULBACTAM <=2 S CEFAZOLIN <=4 S CEFEPIME <=1 S CEFTRIAXONE <=1 S CIPROFLOXACIN >=4 R NITROFURANTOIN <=16 S TRIMETHOPRIM/SULFAMETHOXAZ >=320 R S=Sensitive;I=Indeterminate;R=Resistant 63 This sample is drawn by:ILANA. 64 Per NCEP ATP III Guidelines: Results lower than 40 mg/dL are suggestive of increased risk for coronary artery disease. Results > or=to 60 mg/dL are considered a negative risk factor. 65 Per NCEP ATP III Guidelines: Normal Population <130 Patients with medical conditions: CHD/DM Optimal: <100 Borderline high: 130-159 High: 160-189 Very high: >189 66 Concerning GFR Guidelines for Americans: Normal function or mild renal disease, if clinically at risk: >/=60 mL/min Moderately decreased: 30-59 Severely decreased: 15-29 Renal failure: <15 67 Concerning GFR Guidelines: Normal function or mild renal disease, if clinically at risk: >/=60 mL/min Moderately decreased: 30-59 Severely decreased: 15-29 Renal failure: <15 Glomerular Filtration Rate (GFR) is estimated based on the MDRD equation, which assumes a steady state for creatinine as recommended by the National Kidney Disease Education Program in conjunction with the National Institutes of Health and the National Kidney Foundation. Clinical conditions in which it may be necessary to measure GFR by using clearance methods include extremes of age and body size, severe malnutrition or obesity, diseases of skeletal muscle, paraplegia or quadriplegia, vegetarian diet, rapidly changing kidney function, and calculation of the dose of potentially toxic drugs that are excreted by the kidneys. 68 [facility], [facility]. [address] [place] [address] GYNECOLOGIC CYTOLOGY REPORT Accession Number: [id number] Source of Specimen(s): A: SurePath Vaginal/ Cervical/ Endocervical Pap Smear - One Vial Clinical Diagnosis and History: Date of Last Menstrual Period: None Provided Other Clinical Conditions: REFLEX TO DIGENE HPV ASSAY IF RESULTS OF THIS PAP ARE ASCUS Specimen Adequacy Satisfactory for evaluation Presence of endocervical/transformation zone component General Categorization Negative for intraepithelial lesion or malignancy Interpretation NEGATIVE FOR INTRAEPITHELIAL LESION OR MALIGNANCY Reported: 02/26/2013 Electronically Signed Out By Lashawn PERALTA(ASCP) [facility] dss Unless otherwise specified, testing performed by [facility] [address] [address] 69 LABORATORY [facility]. [address] [place] [id number] GYNECOLOGIC CYTOLOGY REPORT Accession Number: [id number] Source of Specimen(s): A: SurePath Vaginal/ Cervical/ Endocervical Pap Smear - One Vial Clinical Diagnosis and History: Date of Last Menstrual Period: None Provided Other Clinical Conditions: REFLEX TO DIGENE HPV ASSAY IF RESULTS OF THIS PAP ARE ASCUS Specimen Adequacy Satisfactory for evaluation Presence of endocervical/transformation zone component General Categorization Negative for intraepithelial lesion or malignancy Interpretation NEGATIVE FOR INTRAEPITHELIAL LESION OR MALIGNANCY Reported: 10/30/2011 Electronically Signed Out By Lashawn PERALTA(ASCP) [facility] dss Unless otherwise specified, testing performed by [facility] [address] [address] 70 This sample is drawn by:CT 71 Per NCEP ATP III Guidelines: Results lower than 40 mg/dL are suggestive of increased risk for coronary artery disease. Results > or=to 60 mg/dL are considered a negative risk factor. 72 Per NCEP ATP III Guidelines: Optimal: <100 Near optimal: 100-129 Borderline high: 130-159 High: 160-189 Very high: >189 73 Concerning GFR Guidelines for Americans: Normal function or mild renal disease, if clinically at risk: >/=60 mL/min Moderately decreased: 30-59 Severely decreased: 15-29 Renal failure: <15 74 Concerning GFR Guidelines: Normal function or mild renal disease, if clinically at risk: >/=60 mL/min Moderately decreased: 30-59 Severely decreased: 15-29 Renal failure: <15 Glomerular Filtration Rate (GFR) is estimated based on the MDRD equation, which assumes a steady state for creatinine as recommended by the National Kidney Disease Education Program in conjunction with the National Institutes of Health and the National Kidney Foundation. Clinical conditions in which it may be necessary to measure GFR by using clearance methods include extremes of age and body size, severe malnutrition or obesity, diseases of skeletal muscle, paraplegia or quadriplegia, vegetarian diet, rapidly changing kidney function, and calculation of the dose of potentially toxic drugs that are excreted by the kidneys. 75 This sample is drawn by:RICARDO 76 [employer] [facility]. [address] [place] [address] GYNECOLOGIC CYTOLOGY REPORT Accession Number: [id number] Source of Specimen(s): A: SurePath Vaginal/ Cervical/ Endocervical Pap Smear - One Vial Clinical Diagnosis and History: Date of Last Menstrual Period: None Provided Other Clinical Conditions: REFLEX TO DIGENE HPV ASSAY IF RESULTS OF THIS PAP ARE ASCUS Specimen Adequacy Satisfactory for evaluation Presence of endocervical/transformation zone component General Categorization Negative for intraepithelial lesion or malignancy Interpretation NEGATIVE FOR INTRAEPITHELIAL LESION OR MALIGNANCY Acute inflammatory cells Reported: 09/06/2010 Electronically Signed Out By Sharla PERALTA(ASCP) [facility] Unless otherwise specified, testing performed by [facility] [address] [address] 77 This sample is drawn by:ILANA. 78 FSH Female Normal Values: Mid-Follicular: 3.9-8.8 mIU/mL Mid-cycle Peak: 4.5-22.5 mIU/mL Mid-Luteal: 1.8-5.1 mIU/mL Post-menopausal:16.7-113.6 mIU/mL 79 Lutenizing Hormone Female Normal Values: Mid-Follicular: 2.1-10.9 mIU/mL Mid-cycle Peak: 19.2-103.0 mIU/mL Mid-Luteal: 1.2-12.9 mIU/mL Post-menopausal:10.9-58.6 mIU/mL 80 Concerning GFR Guidelines: Normal function or mild renal disease, if clinically at risk: >/=60 mL/min Moderately decreased: 30-59 Severely decreased: 15-29 Renal failure: <15 Glomerular Filtration Rate (GFR) is estimated based on the MDRD equation, which assumes a steady state for creatinine as recommended by the National Kidney Disease Education Program in conjunction with the National Institutes of Health and the National Kidney Foundation. Clinical conditions in which it may be necessary to measure GFR by using clearance methods include extremes of age and body size, severe malnutrition or obesity, diseases of skeletal muscle, paraplegia or quadriplegia, vegetarian diet, rapidly changing kidney function, and calculation of the dose of potentially toxic drugs that are excreted by the kidneys. 81 Concerning GFR Guidelines for Americans: Normal function or mild renal disease, if clinically at risk: >/=60 mL/min Moderately decreased: 30-59 Severely decreased: 15-29 Renal failure: <15 82 Per NCEP ATP III Guidelines: Results lower than 40 mg/dL are suggestive of increased risk for coronary artery disease. Results > or=to 60 mg/dL are considered a negative risk factor. 83 Per NCEP ATP III Guidelines: Optimal: <100 Near optimal: 100-129 Borderline high: 130-159 High: 160-189 Very high: >189 84 Microbiology results SOURCE URINE RESULT No growth 85 [employer] [facility] [address] [place] [address] GYNECOLOGIC CYTOLOGY REPORT Accession Number: [id number] Source of Specimen(s): A: SurePath Vaginal/ Cervical/ Endocervical Pap Smear - One Vial Clinical Diagnosis and History: Date of Last Menstrual Period: None Provided Other Clinical Conditions: REFLEX TO DIGENE HPV ASSAY IF RESULTS OF THIS PAP ARE ASCUS Specimen Adequacy Satisfactory for evaluation Scant/no endocervical component General Categorization Negative for intraepithelial lesion or malignancy Interpretation NEGATIVE FOR INTRAEPITHELIAL LESION OR MALIGNANCY Reported: 11/29/2009 Electronically Signed Out By Sharla PERALTA(ASCP) [facility] Unless otherwise specified, testing performed by [facility] [place] [address] [place] [address] 86 FASTING This sample is drawn by:KATHRYN Padilla Phone [phone] - AUTO FAX IN 10/11 87 Concerning GFR GUIDELINES: Normal Function or Mild Renal Disease, if clinically at risk: >/=60mL/min Moderately decreased: 30-59 Severely decreased: 15-29 Renal Failure: <15 Glomerular Filtration Rate (GFR) is estimated based on the MDRD equation, which assumes a steady state for creatinine as recommended by the National Kidney Disease Education Program in conjunction with the National Institutes of Health and the National Kidney Foundation. Clinical conditions in which it may be necessary to measure GFR by using clearance methods include extremes of age and body size, severe malnutrition or obesity, diseases of skeletal muscle, paraplegia or quadriplegia, vegetarian diet, rapidly changing kidney function, and calculation of the dose of potentially toxic drugs that are excreted by the kidneys. 88 Concerning GFR GUIDELINES: Normal Function or Mild Renal Disease, if clinically at risk: >/=60mL/min Moderately decreased: 30-59 Severely decreased: 15-29 Renal Failure: <15 89 PER NCEP ATP III GUIDELINES: RESULTS LOWER THAN 40 MG/DL ARE SUGGESTIVE OF INCREASED RISK FOR CORONARY ARTERY DISEASE. RESULTS > OR=TO 60 MG/DL ARE CONSIDERED A NEGATIVE RISK FACTOR. 90 INTERPRETATION OF CHOL-HDL RATIO CHD RISK FEMALE MALE VERY HIGH >8.3 >14.3 HIGH 5.6 - 8.3 6.7 - 14.3 AVERAGE 3.7 - 5.6 4.0 - 6.7 BELOW AVERAGE 2.5 - 3.7 2.7 - 4.0 PROTECTED <2.5 <2.7 91 PER NCEP ATP III GUIDELINES: OPTIMAL: <100 NEAR OPTIMAL: 100 - 129 BORDERLINE HIGH: 130 - 159 HIGH: 160 - 189 VERY HIGH: >189 92 Unless otherwise specified, testing performed by [facility] [address] [place] [id number] 93 [employer] [facility]. [address] [place] [address] MISCELLANEOUS CYTOLOGY REPORT Accession Number: [id number] Source of Specimen(s): A: Urine, Voided Clinical Diagnosis and History: 599.70 Gross Description: Urine, Voided: 10 ml yellow fluid (some urine spilled into bag) Final Diagnosis: Specimen Adequacy Satisfactory Final Diagnosis NEGATIVE FOR MALIGNANCY Urothelial cells, squamous cells, bacteria, few erythrocytes and neutrophils Reported: 10/02/2009 Electronically Signed Out By Brayan Resendez M.D. Cotton Chopper: Rosario Chaudhary SCT(ASCP)([facility]) [facility] Unless otherwise specified, testing performed by [facility] [address] [place] [id number] 94 >100,000 CFU/ML ESCHERICHIA COLI 95 GRAM NEGATIVE BREE ISOLATED, ID & SENSITIVITY TO FOLLOW 96 This sample is drawn by:NB. 97 Concerning GFR GUIDELINES: Normal Function or Mild Renal Disease, if clinically at risk: >/=60mL/min Moderately decreased: 30-59 Severely decreased: 15-29 Renal Failure: <15 Glomerular Filtration Rate (GFR) is estimated based on the MDRD equation, which assumes a steady state for creatinine as recommended by the National Kidney Disease Education Program in conjunction with the National Institutes of Health and the National Kidney Foundation. Clinical conditions in which it may be necessary to measure GFR by using clearance methods include extremes of age and body size, severe malnutrition or obesity, diseases of skeletal muscle, paraplegia or quadriplegia, vegetarian diet, rapidly changing kidney function, and calculation of the dose of potentially toxic drugs that are excreted by the kidneys. 98 Concerning GFR GUIDELINES: Normal Function or Mild Renal Disease, if clinically at risk: >/=60mL/min Moderately decreased: 30-59 Severely decreased: 15-29 Renal Failure: <15 99 FSH Female Normal Values: Mid-Follicular: 3.9-8.8 mIU/ml Mid-cycle Peak: 4.5-22.5 mIU/ml Mid-Luteal: 1.8-5.1 mIU/ml Post menopausal: 16.7-113.6 mIU/ml 100 Lutenizing Hormone Female Normals: Mid-Follicular: 2.1-10.9 mIU/ml Mid-cycle Peak: 19.2-103.0 mIU/ml Mid-Luteal: 1.2-12.9 mIU/ml Postmenopausal: 10.9-58.6 mIU/ml 101 LABORATORY [facility]. [address] [place] [address] GYNECOLOGIC CYTOLOGY REPORT Accession Number: [id number] Source of Specimen(s): A: SurePath Vaginal/ Cervical/ Endocervical Pap Smear - One Vial Clinical Diagnosis and History: Date of Last Menstrual Period: None Provided Other Clinical Conditions: REFLEX TO DIGENE HPV ASSAY IF RESULTS OF THIS PAP ARE ASCUS Specimen Adequacy Satisfactory for evaluation Scant/no endocervical component General Categorization Negative for intraepithelial lesion or malignancy Interpretation NEGATIVE FOR INTRAEPITHELIAL LESION OR MALIGNANCY Reported: 09/07/2008 Electronically Signed Out By Sharla PERALTA(ASCP) [facility] ICD9 Code: V72.3 Unless otherwise specified, testing performed by [employer] [address] [place] [address] 102 FASTING This sample is drawn by: DB 103 Concerning GFR GUIDELINES: Normal Function or Mild Renal Disease, if clinically at risk: >/=60mL/min Moderately decreased: 30-59 Severely decreased: 15-29 Renal Failure: <15 Glomerular Filtration Rate (GFR) is estimated based on the MDRD equation, which assumes a steady state for creatinine as recommended by the National Kidney Disease Education Program in conjunction with the National Institutes of Health and the National Kidney Foundation. Clinical conditions in which it may be necessary to measure GFR by using clearance methods include extremes of age and body size, severe malnutrition or obesity, diseases of skeletal muscle, paraplegia or quadriplegia, vegetarian diet, rapidly changing kidney function, and calculation of the dose of potentially toxic drugs that are excreted by the kidneys. 104 Concerning GFR GUIDELINES: Normal Function or Mild Renal Disease, if clinically at risk: >/=60mL/min Moderately decreased: 30-59 Severely decreased: 15-29 Renal Failure: <15 105 This sample is drawn by:CT 106 Unless otherwise specified, testing performed by [employer] [address] [place] [address] 107 Concerning GFR GUIDELINES: Normal Function or Mild Renal Disease, if clinically at risk: >/=60mL/min Moderately decreased: 30-59 Severely decreased: 15-29 Renal Failure: <15 Glomerular Filtration Rate (GFR) is estimated based on the MDRD equation, which assumes a steady state for creatinine as recommended by the National Kidney Disease Education Program in conjunction with the National Institutes of Health and the National Kidney Foundation. Clinical conditions in which it may be necessary to measure GFR by using clearance methods include extremes of age and body size, severe malnutrition or obesity, diseases of skeletal muscle, paraplegia or quadriplegia, vegetarian diet, rapidly changing kidney function, and calculation of the dose of potentially toxic drugs that are excreted by the kidneys. 108 Concerning GFR GUIDELINES: Normal Function or Mild Renal Disease, if clinically at risk: >/=60mL/min Moderately decreased: 30-59 Severely decreased: 15-29 Renal Failure: <15 109 >100,000 CFU/ML ESCHERICHIA COLI 110 GRAM NEGATIVE BREE ISOLATED, ID & SENSITIVITY TO FOLLOW 111 The reference range for methylmalonic acid has been set at +3sd above the mean for healthy blood bank donors. In the clinical assessment of patients with megaloblastic anemias a cutoff of +3sd provides greater specificity in the diagno- sis of the vitamin deficiency states, despite the sacrifice of some sensitivity. 112 Folate result greater than 23.0 ng/ml Procedures Date Code Description Status 05/12/2018 32808 Electrocardiogram Complete Completed 03/02/2018 63451 Inj,Trigger Point(S) Single Or Multiple PTS, 1 Or 2 Completed Muscle Group( 10/07/2017 [id number] Mammogram Completed 05/20/2017 82067 Electrocardiogram Complete Completed 10/04/2016 91592 Anoscopy Diagnostic Completed 09/05/2016 [id number] Mammogram Completed 09/05/2016 [id number] Bone Mineral Density Test Completed 05/17/2016 89032 Electrocardiogram Complete Completed 05/17/2016 06720 Remove Impacted Cerumen Requiring Instrumentation Completed 12/29/2015 21338 ECHO Transthoracis 2D W Spectral Doppler Completed 05/19/2015 04294 Electrocardiogram Complete Completed 02/24/2015 [id number] Mammogram Completed 12/23/2014 90478 Admin Of Inj (Therapeutic Phrophylactic Or Diagnostic Completed Subq Inj 12/02/2014 15521 Electrocardiogram Complete Completed 03/29/2014 [id number] Bone Mineral Density Test Completed 03/25/2014 70826 Admin Of Inj (Therapeutic Phrophylactic Or Diagnostic Completed Subq Inj 03/25/2014 57132 Electrocardiogram Complete Completed 03/25/2014 15819 Remove Impacted Cerumen Requiring Instrumentation Completed 03/14/2014 [id number] Mammogram Completed 02/23/2013 05522 Electrocardiogram Complete Completed 01/22/2013 [id number] Mammogram Completed 03/11/2012 71647700 Mammogram Completed 12/02/2011 [id number] Mammogram Completed 10/28/2011 31048 Electrocardiogram Complete Completed 10/28/2011 72453 Remove Impacted Cerumen Requiring Instrumentation Completed 12/12/2010 [id number] Mammogram Completed 11/20/2010 [id number] Mammogram Completed 09/04/2010 23632 Electrocardiogram Complete Completed 03/30/2010 14715 Remove Impacted Cerumen Requiring Instrumentation Completed 11/20/2009 [id number] Mammogram Completed 11/18/2008 [id number] Mammogram Completed 11/18/2008 399303853 Bone Mineral Density Test Completed 09/05/2008 38923 Electrocardiogram Complete Completed 08/14/2007 75138 Electrocardiogram Complete Completed 08/14/2007 20629 Remove Impacted Cerumen Requiring Instrumentation Completed 06/27/2006 41426 Electrocardiogram Complete Completed 08/02/2005 89375 Destruction Lesion/Any Method Premalignant Lesions Completed 06/28/2005 36673 Destruc Any Method 2-14 Lesions,Each Pre Malig Completed 06/28/2005 62954 Destruction Lesion/Any Method Premalignant Lesions Completed 06/28/2005 59333 Destruction Lesion/Any Method Premalignant Lesions Completed 06/28/2005 51444 Destruction Lesion/Any Method Premalignant Lesions Completed 01/18/2005 11024 Electrocardiogram Complete Completed 09/03/2004 89163 Electrocardiogram Complete Completed 12/16/2003 66411 ECHO Complete W/O Spectral Or Color Doppler Completed 12/16/2003 19896 Doppler Echocardiography Complete Completed 12/16/2003 76153 Doppler Color Flow Velocity Mapping Completed 06/21/2003 60158 Electrocardiogram Complete Completed 04/02/2002 96273 Electrocardiogram Complete Completed 04/02/2002 47771 ECHO Complete W/O Spectral Or Color Doppler Completed 04/02/2002 82764 Doppler Echocardiography Complete Completed 04/02/2002 15669 Doppler Color Flow Velocity Mapping Completed 12/11/2000 96914 Inject/Drain Joint/Bursa Small Joint Or Bursa W/O Completed Ultrasound Guid 12/11/2000 33321 Remove Impacted Cerumen Requiring Instrumentation Completed Encounters Type Date Location Provider Dx Diagnosis Office Visit 06/30/2018 Jody Foster M54.12 Radiculopathy, 2:00p MD Nick cervical region M77.12 Lateral epicondylitis, LEFT elbow 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, thoracic region R20.2 Paresthesia of skin M25.50 Pain in unspecified joint N95.1 Menopausal and female climacteric states Office Visit 05/12/2018 8:30a Jody Foster Z01.411 Encntr for medical oncology physician exam MD Nick (general) (routine) w abnormal findings D72.819 Decreased white blood cell count, unspecified M54.12 Radiculopathy, cervical region I71.2 Thoracic aortic aneurysm, without rupture N39.0 Urinary tract infection, site not specified E55.9 Vitamin D deficiency, unspecified E78.2 Mixed hyperlipidemia E04.1 Nontoxic single thyroid nodule D50.9 Iron deficiency anemia, unspecified K21.0 Gastro-esophageal reflux disease with esophagitis Z12.31 Encntr screen mammogram for malignant neoplasm of breast Z12.11 Encounter for screening for malignant neoplasm of colon M85.9 Disorder of bone density and structure, unspecified I45.19 Other RIGHT bundle-branch block I36.1 Nonrheumatic tricuspid (valve) insufficiency M77.12 Lateral epicondylitis, LEFT elbow Office Visit 04/21/2018 3:30p Jody Foster M51.24 Other intervertebral MD Nick disc displacement, thoracic region M54.12 Radiculopathy, cervical region I71.2 Thoracic aortic aneurysm, without rupture M62.831 Muscle spasm of calf Office Visit 03/02/2018 11:45a Jody Foster M77.12 Lateral epicondylitis, MD Nick LEFT elbow M62.830 Muscle spasm of back M79.18 Myalgia, other site Office Visit 12/26/2017 11:40a Hawa Smith, N39.0 Urinary tract RN [employer] infection, site not specified Office Visit 11/11/2017 8:15a Jody Foster R07.82 Intercostal pain MD Nick K21.0 Gastro-esophageal reflux disease with esophagitis I71.2 Thoracic aortic aneurysm, without rupture E04.1 Nontoxic single thyroid nodule E78.2 Mixed hyperlipidemia D50.9 Iron deficiency anemia, unspecified M62.830 Muscle spasm of back M85.9 Disorder of bone density and structure, unspecified R09.82 Postnasal drip N39.0 Urinary tract infection, site not specified K43.9 Ventral hernia without obstruction or gangrene Office Visit 10/13/2017 10:40a Ho Kang PA N39.0 Urinary tract infection, site not specified Office Visit 09/15/2017 2:30p Jody Foster M51.24 Other intervertebral MD Nick disc displacement, thoracic region R07.82 Intercostal pain K21.0 Gastro-esophageal reflux disease with esophagitis Office Visit 07/29/2017 2:15p Jody Foster MD R09.82 Postnasal drip K21.0 Gastro-esophageal reflux disease with esophagitis E04.1 Nontoxic single thyroid nodule I71.2 Thoracic aortic aneurysm, without rupture F43.0 Acute stress reaction Office Visit 05/20/2017 8:30a Jody Foster Z00.00 Encntr for general Nick MD adult medical exam w/o abnormal findings I71.2 Thoracic aortic aneurysm, without rupture R20.2 Paresthesia of skin M62.830 Muscle spasm of back M85.9 Disorder of bone density and structure, unspecified K21.0 Gastro-esophageal reflux disease with esophagitis E04.1 Nontoxic single thyroid nodule E78.2 Mixed hyperlipidemia Z12.31 Encntr screen mammogram for malignant neoplasm of breast D50.9 Iron deficiency anemia, unspecified Office Visit 01/27/2017 7:30a Ho Kang PA N39.0 Urinary tract infection, site not specified R31.9 Hematuria, unspecified Office Visit 12/11/2016 8:00a Jody Foster MD R20.2 Paresthesia of skin M62.830 Muscle spasm of back I71.2 Thoracic aortic aneurysm, without rupture L72.3 Sebaceous cyst Z23 Encounter for immunization Office Visit 11/15/2016 8:00a Jody Foster M85.9 Disorder of bone MD Nick density and structure, unspecified K60.2 Anal fissure, unspecified K21.0 Gastro-esophageal reflux disease with esophagitis E04.1 Nontoxic single thyroid nodule R09.82 Postnasal drip E78.2 Mixed hyperlipidemia M62.830 Muscle spasm of back 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 Office Visit 10/04/2016 11:15a Jody Foster MD K92.1 Melena Z12.11 Encounter for screening for malignant neoplasm of colon K60.2 Anal fissure, unspecified Office Visit 05/17/2016 8:30a Jody Foster Z00.00 Encntr shobha Romero MD adult medical exam w/o abnormal findings K21.0 Gastro-esophageal reflux disease with esophagitis I71.2 Thoracic aortic aneurysm, without rupture Z12.31 Encntr screen mammogram for malignant neoplasm of breast E04.1 Nontoxic single thyroid nodule Z12.11 Encounter for screening for malignant neoplasm of colon D50.9 Iron deficiency anemia, unspecified M85.9 Disorder of bone density and structure, unspecified I36.9 Nonrheumatic tricuspid valve disorder, unspecified H10.45 Other chronic allergic conjunctivitis R09.82 Postnasal drip H61.23 Impacted cerumen, bilateral Office Visit 04/11/2016 8:40a Sofya Ortega PA R31.9 Hematuria, unspecified Office Visit 02/13/2016 8:15a Jody Foster K21.0 Gastro- esophageal MD Nick reflux disease with esophagitis R07.2 Precordial pain R92.8 Oth abn and inconclusive findings on dx imaging of breast R10.13 Epigastric pain D50.9 Iron deficiency anemia, unspecified I71.2 Thoracic aortic aneurysm, without rupture Z23 Encounter for immunization Office Visit 11/17/2015 8:15a Jody Foster I71.2 Thoracic aortic MD Nick aneurysm, without rupture E04.1 Nontoxic single thyroid nodule K21.0 Gastro-esophageal reflux disease with esophagitis R92.8 Oth abn and inconclusive findings on dx imaging of breast R07.2 Precordial pain D64.9 Anemia, unspecified R10.13 Epigastric pain E78.0 Pure hypercholesterolemia Z12.31 Encntr screen mammogram for malignant neoplasm of breast Office Visit 06/13/2015 2:00p Rajendra Feldman PA Z23 Encounter for immunization W54.0xxA Bitten by dog, initial encounter Office Visit 05/19/2015 8:30a Jody Foster Z01.411 Encntr for medical oncology physician exam MD Nick (general) (routine) w abnormal findings I71.2 Thoracic aortic aneurysm, without rupture E04.1 Nontoxic single thyroid nodule Z12.11 Encounter for screening for malignant neoplasm of colon Z12.31 Encntr screen mammogram for malignant neoplasm of breast F43.0 Acute stress reaction K21.0 Gastro-esophageal reflux disease with esophagitis M85.9 Disorder of bone density and structure, unspecified R92.8 Oth abn and inconclusive findings on dx imaging of breast Z11.59 Encounter for screening for other viral diseases R09.82 Postnasal drip R07.2 Precordial pain R19.09 Other intra-abdominal and pelvic swelling, mass and lump Office Visit 12/23/2014 10:45a Jody Foster MD R07.2 Precordial pain F43.0 Acute stress reaction E04.1 Nontoxic single thyroid nodule I71.2 Thoracic aortic aneurysm, without rupture Z23 Encounter for immunization Office Visit 12/02/2014 10:00a Jody Foster MD 786.51 Pain Precordial 441.2 Aneurysm Thoracic W/O Rupture 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 308.3 Stress Reaction Other Acute Office Visit 11/15/2014 8:00a Jody Foster MD 595.0 Cystitis Acute 793.80 Unspecified Abnormal Mammogram 530.11 Esophagitis Reflux 441.2 Aneurysm Thoracic W/O Rupture 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 733.90 Bone & Cartilage Disorder Unspec 288.50 Leukocytopenia, Unspecified Office Visit 05/13/2014 10:15a Jody Foster MD 441.2 Aneurysm Thoracic W/O Rupture 719.45 Pain Joint Pelvic Region & Thigh 530.11 Esophagitis Reflux 733.90 Bone & Cartilage Disorder Unspec 288.50 Leukocytopenia, Unspecified Office Visit 03/25/2014 9:30a Jody Foster V72.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 MD Nick Examination 627.3 Atrophic Vaginitis Postmenopausal 530.11 Esophagitis Reflux V76.10 Screening For Malignant Neoplasm Breast 272.0 Hypercholesterolemia Pure V76.51 Special Screening For Malignant Neoplasms Colon 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 794.31 Electrocardiogram (ECG) (EKG) Abnormal 426.4 RIGHT Bundle Branch Block V82.81 Screening For Osteoporosis 719.45 Pain Joint Pelvic Region & Thigh 380.4 Impacted Cerumen V04.81 Need For Prophylactic Vaccination & Inoculation/Influenza Office Visit 12/02/2013 8:20a Hawa Smith 599.0 UTI Urinary Tract RN MS CHANNEL DEVELOPMENT DIRECTOR Infection Site Not Spec 599.70 Hematuria, Unspecified Office Visit 09/29/2013 9:20a Basilia Krishnamurthy MD 911.4 Injury Superficial Insect Bite Trunk Nonvenomous W/O Infect Office Visit 08/31/2013 1:00p Jody Foster 530.11 Esophagitis Reflux MD Nick 627.2 Menopausal Or Female Climacteric State, Symptomatic 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 Office Visit 07/15/2013 3:00p Hawa Smith 599.0 UTI Urinary Tract RN MS CHANNEL DEVELOPMENT DIRECTOR Infection Site Not Spec Office Visit 06/25/2013 8:15a Jody Foster 530.11 Esophagitis Reflux MD Nick 627.2 Menopausal Or Female Climacteric State, Symptomatic 610.0 Cyst Breast Solitary 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 Office Visit 02/23/2013 2:30p Jody Foster V72.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 MD Nick Examination 530.11 Esophagitis Reflux V76.10 Screening For Malignant Neoplasm Breast 272.0 Hypercholesterolemia Pure V76.51 Special Screening For Malignant Neoplasms Colon 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 627.2 Menopausal Or Female Climacteric State, Symptomatic 275.2 Metabolic Disorder Magnesium 281.1 Vitamin B12 Deficiency Anemia Other 620.2 Ovarian Cyst Other & Unspec 782.2 Swelling Mass Or Lump Localized Superfical V04.81 Need For Prophylactic Vaccination & Inoculation/Influenza Office Visit 09/29/2012 2:00p Jody Foster V41.4 Voice Production MD Nick Problem 530.11 Esophagitis Reflux 471.9 Nasal Polyp Unspec 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 784.91 Postnasal Drip 214.9 Lipoma Unspecified Site Office Visit 06/01/2012 10:15a Jody Foster 241.0 Goiter Nontoxic MD Nick Uninodular 616.10 Vaginitis & Vulvovaginitis Unspec 627.2 Menopausal Or Female Climacteric State, Symptomatic 784.91 Postnasal Drip 477.9 Rhinitis Allergic Cause Unspec V41.4 Voice Production Problem Office Visit 10/28/2011 10:00a Jody Foster V72.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 MD Nick Examination 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 272.0 Hypercholesterolemia Pure 627.2 Menopausal Or Female Climacteric State, Symptomatic V76.51 Special Screening For Malignant Neoplasms Colon V76.10 Screening For Malignant Neoplasm Breast 784.91 Postnasal Drip 380.4 Impacted Cerumen 530.11 Esophagitis Reflux Office Visit 10/04/2011 11:40a Jody Foster 787.20 Dysphagia, MD Nick Unspecified 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 527.7 Salivary Gland Secretion Disturbance 786.2 Cough 530.11 Esophagitis Reflux Office Visit 08/23/2011 10:15a Jody Foster 627.2 Menopausal Or Female MD Nick Climacteric State, Symptomatic 784.91 Postnasal Drip 527.7 Salivary Gland Secretion Disturbance 787.20 Dysphagia, Unspecified 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 272.0 Hypercholesterolemia Pure Office Visit 03/29/2011 3:15p Jody Foster 784.91 Postnasal Drip MD Nick Office Visit 10/30/2010 2:45p Jody Foster 627.2 Menopausal Or Female MD Nick Climacteric State, Symptomatic 780.52 Sleep Disturbance, Insomnia Unspecified 381.81 Eustachian Tube Dysfunction 477.0 Rhinitis Allergic Due To Pollen Office Visit 09/04/2010 8:30a Jody Foster MD 477.0 Rhinitis Allergic Due To Pollen V76.10 Screening For Malignant Neoplasm Breast V76.51 Special Screening For Malignant Neoplasms Colon V72.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 Examination 627.2 Menopausal Or Female Climacteric State, Symptomatic 465.9 URI Upper Respiratory Infections Acute Unspec Sites 794.31 Electrocardiogram (ECG) (EKG) Abnormal 553.21 Hernia Ventral Incisional 726.32 Epicondylitis Lateral Office Visit 06/05/2010 3:30p Jody Foster 595.0 Cystitis Acute MD Nick Office Visit 03/30/2010 1:00p Jody Foster 381.81 Eustachian Tube MD Nick Dysfunction 380.4 Impacted Cerumen Office Visit 01/30/2010 2:00p Marilyn Farah V04.81 Need For Prophylactic Jody Romero MD Vaccination & Inoculation/Influenza 627.2 Menopausal Or Female Climacteric State, Symptomatic 706.2 Sebaceous Cyst Office Visit 11/24/2009 10:15a Jody Foster 627.2 Menopausal Or Female MD Nick Climacteric State, Symptomatic 706.2 Sebaceous Cyst Office Visit 09/29/2009 8:15a Jody Foster MD V70.0 Exam ( Adult) General Medical Routine AT Health Care Facility 627.2 Menopausal Or Female Climacteric State, Symptomatic 621.8 Uterus Disorders Spec Other Not Elsewhere Class V76.10 Screening For Malignant Neoplasm Breast V76.51 Special Screening For Malignant Neoplasms Colon 599.70 Hematuria, Unspecified Office Visit 08/30/2009 10:00a Hawa Smith, 599.0 UTI Urinary Tract RN MS CHANNEL DEVELOPMENT DIRECTOR Infection Site Not Spec Office Visit 07/04/2009 10:00a Jody Foster 728.85 Spasm Muscle MD Nick Office Visit 06/20/2009 10:30a Marilyn Nurses Schedule [place] Office Visit 06/19/2009 10:10a Marilyn Nurses Schedule [place] Office Visit 03/31/2009 10:00a Jody Foster 627.2 Menopausal Or Female MD Nick Climacteric State, Symptomatic 620.2 Ovarian Cyst Other & Unspec V04.81 Need For Prophylactic Vaccination & Inoculation/Influenza Office Visit 09/05/2008 2:00p Jody Foster V72.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 MD Nick Examination 620.2 Ovarian Cyst Other & Unspec V76.10 Screening For Malignant Neoplasm Breast 627.2 Menopausal Or Female Climacteric State, Symptomatic 553.1 Hernia Umbilical 794.31 Electrocardiogram (ECG) (EKG) Abnormal Office Visit 06/01/2008 8:15a Hawa Smith, 599.0 UTI Urinary Tract RN MS CHANNEL DEVELOPMENT DIRECTOR Infection Site Not Spec Office Visit 01/21/2008 8:00a Hawa Smith C, 380.4 Impacted Cerumen RN MS CHANNEL DEVELOPMENT DIRECTOR V04.81 Need For Prophylactic Vaccination & Inoculation/Influenza Office Visit 12/18/2007 10:00a Jody Foster 553.1 Hernia Umbilical MD Nick Office Visit 08/14/2007 10:45a Jody Foster V72.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 MD Nick Examination 530.11 Esophagitis Reflux V76.10 Screening For Malignant Neoplasm Breast V76.51 Special Screening For Malignant Neoplasms Colon 794.31 Electrocardiogram (ECG) (EKG) Abnormal 726.5 Enthesopathy Of Hip Region 626.2 Menstruation Excessive Or Frequent 616.10 Vaginitis & Vulvovaginitis Unspec 380.4 Impacted Cerumen Office Visit 07/10/2007 10:00a Jody Foster 883.0 Open Wound Finger(S) MD Nick W/O Complication Office Visit 11/21/2006 9:30a Jody Foster 616.10 Vaginitis & MD Nick Vulvovaginitis Unspec 786.51 Pain Precordial 333.94 Restless Leg Syndrome Office Visit 06/27/2006 8:30a Jody Foster V72.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 MD Nick Examination 530.11 Esophagitis Reflux 397.0 Tricuspid Valve Disease 616.10 Vaginitis & Vulvovaginitis Unspec 789.01 Pain Abdominal RIGHT Upper Quadrant 528.2 Oral Soft Tissue Disease Exclu Gingiva & Tongue Oral Aphthae Office Visit 05/23/2006 1:30p Jody Foster MD 528.2 Oral Soft Tissue Disease Exclu Gingiva & Tongue Oral Aphthae 530.11 Esophagitis Reflux Office Visit 03/07/2006 1:30p Jody Foster MD 530.11 Esophagitis Reflux 786.51 Pain Precordial V04.81 Need For Prophylactic Vaccination & Inoculation/Influenza V76.10 Screening For Malignant Neoplasm Breast Office Visit 08/02/2005 3:15p Jody Foster MD 786.51 Pain Precordial 845.09 Sprains & Strains Ankle Other 078.10 Viral Warts Unspec Office Visit 06/28/2005 3:00p Jody Foster MD 786.51 Pain Precordial 078.10 Viral Warts Unspec 845.09 Sprains & Strains Ankle Other Office Visit 05/03/2005 2:00p Jody Foster 726.5 Enthesopathy Of Hip MD Nick Region 724.2 Lumbago Office Visit 03/29/2005 1:15p Jody Foster 726.5 Enthesopathy Of Hip MD Nick Region 724.2 Lumbago Office Visit 03/11/2005 1:45p Jody Foster MD 595.0 Cystitis Acute 727.3 Bursitis Other Office Visit 01/18/2005 8:00a Jody Foster MD 595.0 Cystitis Acute 790.09 Other Abnormality Of Red Blood Cells 794.31 Electrocardiogram (ECG) (EKG) Abnormal V72.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 Examination 289.89 specified diseases of the blood/blood forming organs,other Office Visit 09/03/2004 1:15p Jody Foster 794.31 Electrocardiogram (ECG) MD Nick (EKG) Abnormal 288.3 Eosinophilia 959.9 Injury Unspec Site 397.0 Tricuspid Valve Disease 790.6 Abnormal Blood Chemistry Other Office Visit 12/27/2003 8:10a Jody Foster MD 595.0 Cystitis Acute 289.89 specified diseases of the blood/blood forming organs,other 289.81 primary hypercoagulable state Office Visit 10/11/2003 11:20a Hawa Smith, 599.0 UTI Urinary Tract RN MS CHANNEL DEVELOPMENT DIRECTOR Infection Site Not Spec Office Visit 08/05/2003 9:20a Jody Foster 780.79 Malaise And Fatigue MD Nick Other 794.31 Electrocardiogram (ECG) (EKG) Abnormal V25.09 Contraceptive Management Other Office Visit 06/21/2003 10:00a Jody Foster V72.3 Examination MD Nick Gynecological 780.79 Malaise And Fatigue Other 783.1 Weight Gain Abnormal 794.31 Electrocardiogram (ECG) (EKG) Abnormal V65.49 Counseling Other Spec Office Visit 04/02/2002 9:20a Jody Foster MD 553.20 Hernia Ventral Unspec 611.72 Lump Or Mass Breast 794.31 Electrocardiogram (ECG) (EKG) Abnormal V72.84 Examination Preoperative Unspec Office Visit 01/26/2002 11:30a Jody Foster 611.72 Lump Or Mass Breast MD Nick Office Visit 12/15/2001 10:10a Jody Foster 627.2 Menopausal Or Female MD Nick Climacteric State, Symptomatic 611.72 Lump Or Mass Breast 610.1 Cystic Mastopathy Diffuse V72.3 Examination Gynecological Office Visit 09/07/2001 12:20p Jody Foster 553.1 Hernia Umbilical MD Nick Office Visit 05/19/2001 1:40p Hawa Smith, 918.1 Injury Superficial RN MS CHANNEL DEVELOPMENT DIRECTOR Cornea Office Visit 12/11/2000 10:50a Jody Foster MD Office Visit 10/20/2000 5:20p Jody Foster MD Office Visit 12/25/1999 9:00a Jody Foster 795.0 Papanicolaou Smear Of MD Nick Cervix Nonspecific Abnormal Office Visit 11/29/1999 11:20a Jody Foster 795.0 Papanicolaou Smear Of MD Nick Cervix Nonspecific Abnormal Plan of Treatment Future Appointment(s):01/12/2019 8:00 am - Jody Farah MD at [place]
[2018-09-07 19:17] VITALS: BP 115/72
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
--- NOTE | 2018-09-08 08:35 | UC ---
- Progress Note Progress Note: Spoke with [facility] orthopedics. They have a few slots open today with Dr. Alejandro. They will call patient to find out which time works for her today to follow up with Orthopedics. - EKG/XRAY/CT XRAY: elbow Xray Comments: Nondisplaced fracture of left radial head Course/Dx - Diagnoses Provider Diagnoses: Left elbow contusion Discharge - Sign-Out/Discharge Documenting (check all that apply): Post-Discharge Follow Up All imaging exams completed and their final reports reviewed: Yes - Discharge Plan Condition: Stable Disposition: HOME Patient Education Materials: Contusion in Adults (ED), Elbow Sprain (ED) Referrals: Jw Monteiro MD [Medical Doctor] - If Needed Jody Mahoney MD [Primary Care Provider] - Additional Instructions: If you develop a fever, shortness of breath, chest pain, new or worsening symptoms - please call your PCP or go to the ED immediately. 1) The X-Ray of your elbow appears normal, but the radiologist will read this officially in the morning and we will contact you with any changes 2) Please rest, ice, and elevate your elbow intermittently throughout the day to decrease pain and swelling 3) Practice gentle range of motion exercises. 4) If your symptoms worsen or do not improve in 3-5 days, please call Orthopedics at the number below to schedule an appointment for a recheck - Billing Disposition and Condition Condition: STABLE Disposition: Home
== END 2018-09-07 19:47 | disposition home or self-care (01) ==
LOC: UCEAST 18:58
DX: S50.02XA Contusion of left elbow, initial encounter (principal); V19.3XXA Pedal cyclist (driver) (passenger) injured in unspecified nontraffic accident, initial encounter; Y93.55 Activity, bike riding; Y92.9 Unspecified place or not applicable
CPT/HCPCS: 99212; G0463

== ENCOUNTER 2019-05-19 19:25 | Emergency (ER) | payer BC ==
[2019-05-19 19:49] VITALS: BP 150/78
--- NOTE | 2019-05-19 19:55 | UC ---
Laceration HPI - HPI Summary HPI Summary: 63yo female presenting with for laceration of right lo after stepping into an open vent at home around 1800 today. Patient states she had the grates off of the vents to clean them and forgot it was left open. States she is unsure whether she cut her leg open on the aluminum duct or a screw. Notes tenderness but denies pain. States she has gotten the bleeding to stop. Denies decreased range of motion of the foot or toes. Denies decreased range of motion of the leg. Does note some swelling and bruising around the laceration. Denies any numbness and tingling. States "And I know its's not broken because I have broken an ankle and I know what a broken bone feels like. " Also notes minor cuts on the bottom of her right great toe. States she believes she is up-to-date on her tetanus but "will call her primary care tomorrow to make sure." - History Of Current Complaint Chief Complaint: UCLaceration Stated Complaint: LEG INJURY Hx Obtained From: Patient Hx Last Menstrual Period: post Pain Intensity: 7 Pain Scale Used: 0-10 Numeric - Allergies/Home Medications Allergies/Adverse Reactions: Allergies Allergy/AdvReac Type Severity Reaction Status Date / Time No Known Allergies Allergy Verified 05/19/19 19:49 Home Medications: Home Medications Multivitamins/Minerals TAB* [Thera M Plus TAB*] 1 tab PO DAILY 05/09/16 [ History Confirmed 05/19/19] Gabapentin CAP(*) [Neurontin 100 mg CAP(*)] 200 mg PO BEDTIME PRN 08/19/18 [ History Confirmed 05/19/19] Ranitidine HCl (Nf) [Zantac] 75 mg PO DAILY PRN 08/19/18 [History Confirmed ] Calcium Carbonate [Calcium] 1,000 mg PO BID 09/11/18 [History Confirmed 05/19/19 ] PMH/Surg Hx/FS Hx/Imm Hx Previously Healthy: Yes - Surgical History Surgical History: Yes Surgery Procedure, Year, and Place: , left ankle with plate, tonsils - Family History Known Family History: Positive: Hypertension, Non-Contributory - Social History Alcohol Use: Weekly Alcohol Amount: One drink per week Substance Use Type: None Smoking Status (MU): Never Smoked Tobacco - Immunization History Most Recent Tetanus Shot: 2016 Review of Systems All Other Systems Reviewed And Are Negative: No Constitutional: Positive: Negative Skin: Positive: Other - right lo laceration Respiratory: Positive: Negative Cardiovascular: Positive: Negative Gastrointestinal: Positive: Negative Musculoskeletal: Positive: Negative Neurological/Mental Status: Positive: Negative. Negative: Paresthesia, Numbness Physical Exam - Summary Physical Exam Summary: Vital Signs Reviewed: Yes A+Ox3, no distress Eyes: Conjunctiva Clear ENT: Hearing grossly normal neck: supple Respiratory: Positive: No respiratory distress, No accessory muscle use Cardiovascular: skin color reflect adequate perfusion Musculoskeletal Exam: MENDIETA x 4 without difficulty. right dorsiflexion, great toe flexion, and flexion of toes all intact and full Neurological: Positive: Alert, ambulatory without difficulty Psychological: Positive: age appropriate behavior Skin: Positive: ~2cm long x 1cm wide x 0.5cm deep linear laceration noted of anterior right lo, no tendon involvement, nonbleeding, mild edema and surrounding ecchymosis. small round superficial abrasion noted on plantar surface of great toe. Vital Signs: Initial Vital Signs Temp 98 F 05/19/19 19:45 Pulse 69 05/19/19 19:45 Resp 16 05/19/19 19:45 BP 150/78 05/19/19 19:45 Pulse Ox 97 05/19/19 19:45 Laceration Repair - Laceration Repair 1 Description: Linear Laceration Size After Repair: Length (cm) - 2cm, Width (mm) - 1cm, Depth (mm) - 0.5 Contamination/FB Removal: no Modified For Repair: No Type Injection: Local Anesthesia Used: 1.0% Lido Cleansing Completed Via Routine Prep: Yes Irrigation With Pressure Irrigation Device: Yes Closure Material: Sutures - 3 sutures Closure Method: Single Layer Suture Of: Skin Suture Type: Prolene - 4-0 Laceration Course/Dx - Course/Dx Course Of Treatment: Patient laceration was cleansed. No foreign bodies appreciated. I anesthetized with 1% lido and placed 3 sutures. Patient tolerated procedure well. She then received dressing for wound. I educated on care for laceration and stitches. I also educated on s/s of infection and instructed to monitor the area for any red flags for duration of healing. Patient ROM of leg, ankle, foot, and toes all intact and full. Patient declined radiographs, stating "I know it's not broken because I know what a broken bone feels like." PAtient also declined tetanus booster, stating she believes she is UTD. I instructed her to contact her pcp tomorrow to make sure. Instructed to follow up with pcp or return in 8- 10 days for suture removal. Patient voiced understanding and agreed with treatment plan. - Differential Dx - Laceration/Wound Differental Diagnoses: Abrasion, Laceration - Diagnosis Provider Diagnosis: Laceration of skin of lower leg without complication Discharge ED - Sign-Out/Discharge Documenting (check all that apply): Patient Departure All imaging exams completed and their final reports reviewed: No Studies - Discharge Plan Condition: Stable Disposition: HOME Patient Education Materials: Care For Your Stitches (ED), Laceration (ED) Referrals: Jody Mahoney MD [Primary Care Provider] - Additional Instructions: You had 3 stitches placed in your leg today. Keep your stitches clean and dry for the first 24-48 hours. After that, gently wash with soap and warm water daily. Your stitches will not absorb. Follow up with your primary care provider or return in 8-10 days to have your stitches removed. You may take over the counter pain medications as directed for pain relief. You may also apply ice to help alleviate pain and swelling. Monitor the area for signs of infection for the duration of healing. Return or go to the emergency department if you notice any increased redness, warmth, drainage, fever, or nausea and vomiting. Remember to contact your primary care provider tomorrow to make sure your tetanus shot is up to date within the last 5 years. - Billing Disposition and Condition Condition: STABLE Disposition: Home
[2019-05-19] MEDS ORDERED: Lidocaine 1% MPF ** 5 ML VIAL INJ ONE (19:58)
== END 2019-05-19 20:45 | disposition home or self-care (01) ==
LOC: UCEAST 19:25
DX: S81.811A Laceration without foreign body, right lower leg, initial encounter (principal); W45.8XXA Other foreign body or object entering through skin, initial encounter; Y92.009 Unspecified place in unspecified non-institutional (private) residence as the place of occurrence of the external cause
CPT/HCPCS: 12001; 99211; G0463